=== PATIENT | male | born 1960 | race Two or more races ===

== ENCOUNTER 2019-06-03 12:52 | Inpatient (IN) | payer MEDICAID ==
[~2019-06-03] VITALS: Ht 188 cm; Wt 181.4 kg
[2019-06-03 13:55] LABS: BASOPHILS % (AUTO) 0.7 % (0.0-2.0); EOSINOPHILS % (AUTO) 3.8 % (0.0-3.0); HEMATOCRIT 42.9 % (42.0-52.0); HEMOGLOBIN 13.6 G/DL (14.2-18.0); LYMPHOCYTES % (AUTO) 28.2 % (20.0-45.0); MEAN CORPUSCULAR VOLUME 94 FL (80-99); MONOCYTES % (AUTO) 8.9 % (1.0-10.0); NEUTROPHILS % (AUTO) 58.4 % (45.0-75.0); PLATELET COUNT 249 K/UL (150-450); RED BLOOD COUNT 4.57 M/UL (4.70-6.10); RED CELL DISTRIBUTION WIDTH 12.6 % (11.6-14.8); WHITE BLOOD COUNT 8.9 K/UL (4.8-10.8)
[2019-06-03 13:56] LABS: APPEARANCE,URINE CLEAR; BILIRUBIN, URINE 1+ (NEGATIVE); GLUCOSE, URINE (UA) NEGATIVE (NEGATIVE); KETONES,URINE 1+ (NEGATIVE); LEUKOCYTE ESTERASE ,URINE 3+ (NEGATIVE); NITRITE,URINE POSITIVE (NEGATIVE); PH,URINE 6 (4.5-8.0); PROTEIN,URINE 2+ (NEGATIVE); UROBILINOGEN,URINE 12 MG/DL (0.0-1.0)
[2019-06-03 14:06] LABS: COLOR,URINE YELLOW
[2019-06-03 14:10] LABS: ANION GAP 8 mmol/L (5-15); BLOOD UREA NITROGEN 12 mg/dL (7-18); CARBON DIOXIDE 28 MMOL/L (21-32); CHLORIDE 104 MMOL/L (98-107); POTASSIUM 3.2 MMOL/L (3.5-5.1); SODIUM 140 MMOL/L (136-145)
[2019-06-03 14:15] VITALS: BP 155/85
--- NOTE | 2019-06-03 14:15 | Diagnostic Imaging Report ---
Indication: Dyspnea Comparison: None A single view chest radiograph was obtained. Findings: Cardiomediastinal appearance is within normal limits for age and accounting for low lung volumes. The lungs are grossly clear. Pulmonary vascularity is likely appropriate. The diaphragmatic contour is smooth and costophrenic angles are sharp. No pleural effusions are identified. The bones are unremarkable. Impression: No acute findings. Limited due to low lung volumes
--- NOTE | 2019-06-03 14:16 | NUR ---
ED Nurse Note: laurent vargas 826 pt homeless according to ems pt c/o sob and generalized body pain. pt no meds and no allergies. blood and urine sent pt placed in hospital bed pt unkept and dirty and covered in fecal matter.
--- NOTE | 2019-06-03 14:21 | NUR ---
ED Nurse Note: mrsa/vre/cre ordered and sent.
[2019-06-03 14:24] LABS: ALANINE AMINOTRANSFERASE 25 U/L (12-78); ALBUMIN 2.7 G/DL (3.4-5.0); ALBUMIN/GLOBULIN RATIO 0.6 (1.0-2.7); ALKALINE PHOSPHATASE 90 U/L (46-116); ASPARTATE AMINO TRANSFERASE 45 U/L (15-37); BILIRUBIN,TOTAL 0.7 MG/DL (0.2-1.0); CKMB 2.4 NG/ML (0.0-3.6); CREATINE KINASE 989 U/L (26-308)
--- NOTE | 2019-06-03 14:27 | Emergency Room Report ---
History of Present Illness General Chief Complaint: General Complaint Source: Patient, Medical Record, EMS Present Illness HPI Patient was brought in from the street with complaints of shortness of breath Patient is brought in by paramedics patient himself has limited history as he is difficult to arouse and obtain full history With repeat manipulation he does awaken denies any chest pain denies any vomiting or diarrhea Denies any recent travel patient feels more short of breath with any exertion or ambulation Allergies: Coded Allergies: Pork (Unverified Allergy, Unknown, 06/03/19) TETANUS VACCINES AND TOXOID (Unverified Allergy, Unknown, 06/03/19) Patient History Past Medical History: see triage record Pertinent Family History: none Reviewed Nursing Documentation: PMH: Agreed; PSxH: Agreed Nursing Documentation-PMH Past Medical History: No History, Except For Hx Hypertension: Yes Hx Asthma: Yes Hx Diabetes: Yes Review of Systems All Other Systems: negative except mentioned in HPI Physical Exam Vital Signs Date Time Temp Pulse Resp B/P (MAP) Pulse Ox O2 Delivery O2 Flow Rate FiO2 06/03/19 12:47 99.0 95 18 153/85 (107) 94 Room Air Sp02 EP Interpretation: reviewed, normal General Appearance: other - Patient is morbidly obese and appears mildly short of breath Head: normocephalic, atraumatic Eyes: bilateral eye PERRL, bilateral eye EOMI ENT: hearing grossly normal, normal pharynx, TMs + canals normal, uvula midline Neck: full range of motion, supple, no meningismus, no bony tend Respiratory: no respiratory distress, no retraction, no accessory muscle use, crackles - Bilaterally Cardiovascular #1: normal peripheral pulses, regular rate, rhythm, no edema, no gallop, no JVD, no murmur Gastrointestinal: normal bowel sounds, non tender, soft, no mass, no organomegaly, non-distended, no guarding, no hernia, no pulsatile mass, no rebound Genitourinary: no CVA tenderness Musculoskeletal: normal inspection Neurologic: responsive - With further manipulation and verbal discussion patient becomes more oriented, sensory intact Psychiatric: mood/affect normal Skin: no rash, other - Edema both lower extremities Lymphatic: normal inspection, no adenopathy Medical Decision Making Diagnostic Impression: Primary Impression: Dyspnea ER Course Patient is a fairly complex patient with multiple differential to consideration including but not limited to cardiac cardiopulmonary and vascular emergencies Patient's ABG is reassuring Patient however still remains somnolent difficult to arouse at times Drug screen also shows positive cocaine Given the patient's comorbidities and presentation will require further inpatient care Labs Test 06/03/19 13:30 06/03/19 13:40 White Blood Count 8.9 K/UL (4.8-10.8) Red Blood Count 4.57 M/UL (4.70-6.10) Hemoglobin 13.6 G/DL (14.2-18.0) Hematocrit 42.9 % (42.0-52.0) Mean Corpuscular Volume 94 FL (80-99) Mean Corpuscular Hemoglobin 29.6 PG (27.0-31.0) Mean Corpuscular Hemoglobin Concent 31.6 G/DL (32.0-36.0) Red Cell Distribution Width 12.6 % (11.6-14.8) Platelet Count 249 K/UL (150-450) Mean Platelet Volume 6.4 FL (6.5-10.1) Neutrophils (%) (Auto) 58.4 % (45.0-75.0) Lymphocytes (%) (Auto) 28.2 % (20.0-45.0) Monocytes (%) (Auto) 8.9 % (1.0-10.0) Eosinophils (%) (Auto) 3.8 % (0.0-3.0) Basophils (%) (Auto) 0.7 % (0.0-2.0) Sodium Level 140 MMOL/L (136-145) Potassium Level 3.2 MMOL/L (3.5-5.1) Chloride Level 104 MMOL/L (98-107) Carbon Dioxide Level 28 MMOL/L (21-32) Anion Gap 8 mmol/L (5-15) Blood Urea Nitrogen 12 mg/dL (7-18) Creatinine 1.0 MG/DL (0.55-1.30) Estimat Glomerular Filtration Rate > 60 mL/min (>60) Glucose Level 123 MG/DL (74-106) Lactic Acid Level 1.30 mmol/L (0.4-2.0) Calcium Level 9.0 MG/DL (8.5-10.1) Total Bilirubin 0.7 MG/DL (0.2-1.0) Aspartate Amino Transf (AST/SGOT) 45 U/L (15-37) Alanine Aminotransferase (ALT/SGPT) 25 U/L (12-78) Alkaline Phosphatase 90 U/L (46-116) Total Creatine Kinase 989 U/L (26-308) Creatine Kinase MB 2.4 NG/ML (0.0-3.6) Creatine Kinase MB Relative Index 0.2 Troponin I 0.020 ng/mL (0.000-0.056) Pro-B-Type Natriuretic Peptide 54 pg/mL (0-125) Total Protein 7.4 G/DL (6.4-8.2) Albumin 2.7 G/DL (3.4-5.0) Globulin 4.7 g/dL Albumin/Globulin Ratio 0.6 (1.0-2.7) Lipase 96 U/L (73-393) Urine Color Yellow Urine Appearance Clear Urine pH 6 (4.5-8.0) Urine Specific [place] 1.015 (1.005-1.035) Urine Protein 2+ (NEGATIVE) Urine Glucose (UA) Negative (NEGATIVE) Urine Ketones 1+ (NEGATIVE) Urine Blood 1+ (NEGATIVE) Urine Nitrite Positive (NEGATIVE) Urine Bilirubin 1+ (NEGATIVE) Urine Ictotest Negative (NEGATIVE) Urine Urobilinogen 12 MG/DL (0.0-1.0) Urine Leukocyte Esterase 3+ (NEGATIVE) Urine RBC 2-4 /HPF (0 - 0) Urine WBC 30-40 /HPF (0 - 0) Urine Squamous Epithelial Cells Occasional /LPF Urine Bacteria Moderate /HPF (NONE) Urine Opiates Screen Negative (NEGATIVE) Urine Barbiturates Screen Negative (NEGATIVE) Phencyclidine (PCP) Screen Negative (NEGATIVE) Urine Amphetamines Screen Negative (NEGATIVE) Urine Benzodiazepines Screen Negative (NEGATIVE) Urine Cocaine Screen Positive (NEGATIVE) Urine Marijuana (THC) Screen Negative (NEGATIVE) Rhythm Strip Diag. Results EP Interpretation: yes Rate: 88 Rhythm: NSR, no PVC's, no ectopy Chest X-Ray Diagnostic Results Chest X-Ray Diagnostic Results : Chest X-Ray Ordered: Yes # of Views/Limited/Complete: 1 View Indication: Chest Pain EP Interpretation: Yes Interpretation: no consolidation, no effusion, no pneumothorax Impression: No acute disease Electronically Signed by: Jeff Espinoza DO Last Vital Signs Date Time Temp Pulse Resp B/P (MAP) Pulse Ox O2 Delivery O2 Flow Rate FiO2 7/17/19 14:15 99.0 101 18 155/85 94 Room Air Status: improved Disposition: ADMITTED INPATIENT Condition: Serious Referrals: [facility],REFERRING (PCP) Jeff Espinoza DO Jun 03, 2019 14:27
[2019-06-03] MEDS ORDERED: cefTRIAXone 1 GM in NS 55 ML IVPB ONE (14:30)
--- NOTE | 2019-06-03 14:32 | NUR ---
ED Nurse Note: belongings list done
[2019-06-03] MEDS ORDERED: Albuterol/Ipratropium 3ml neb HHN PRN (15:15)
[2019-06-03] MEDS ORDERED: Nitroglycerin Subl 0.4mg tab SL PRN (15:15)
[2019-06-03] MEDS ORDERED: LORazepam 1mg tab ORAL PRN (15:15)
--- NOTE | 2019-06-03 16:06 | Diagnostic Imaging Report ---
Indication: Dyspnea Comparison: Earlier AP chest x-ray from 13:48 A single lateral view chest radiograph was attempted per ordering physician request. Findings: Due to positioning issues and patient's size, the lateral view obtained is nondiagnostic. IMPRESSION: Lateral chest x-ray nondiagnostic
[2019-06-03 16:15] VITALS: BP 158/88
[2019-06-03 18:28] VITALS: BP 152/56
[2019-06-03] MEDS ORDERED: NKM (18:42)
--- NOTE | 2019-06-03 18:51 | History and Physical ---
History of Present Illness General Date patient seen: Jun 03, 2019 Time patient seen: 16:00 Reason for Hospitalization: General Complaint Present Illness HPI 59 y/o AA obese, homeless male who was BIBA due to generalized body aches. He was noted to be unkept and covered in fecal matter in the ED. Upon evaluation, CXR was not diagnostic due to body habitus and his UA was noted to be positive for UTI. Ceftriaxone was started and UTOX was positive. Due to homelessness and danger to self without proper discharge plan, ED called for admission. During the interview the patient is tangential and a poor historian. He reports living in the street for years and denies pain at this time. No chest pain, sob , nausea or emesis. Allergies: Coded Allergies: No Known Allergies (Unverified , 06/03/19) Medication History Scheduled No Known Medications* (NKM - No Known Medications*), 0 ., (Reported) Patient History History Provided By: Patient Healthcare decision maker Resuscitation status Advanced Directive on File Social History Social History: (1) Homeless single person Review of Systems All Other Systems: negative except mentioned in HPI Physical Exam General Appearance: moderate distress, other - unkept and dirty clothes. PER ED , covered in feces. Lines, tubes and drains: peripheral HEENT: normocephalic, atraumatic Neck: non-tender Respiratory/Chest: chest wall non-tender, normal breath sounds Cardiovascular/Chest: normal peripheral pulses, normal rate Abdomen: non tender Extremities: non-tender, no cyanosis, trace edema Skin Exam: normal pigmentation Neurologic: manager product management II-XII grossly normal Last 24 Hour Vital Signs Date Time Temp Pulse Resp B/P (MAP) Pulse Ox O2 Delivery O2 Flow Rate FiO2 06/03/19 18:28 96 20 152/56 99 Room Air 06/03/19 16:15 99 18 158/88 96 Room Air 06/03/19 14:15 99.0 101 18 155/85 94 Room Air 06/03/19 13:55 95 18 Room Air 06/03/19 12:47 99.0 95 18 153/85 (107) 94 Room Air Laboratory Tests Test 06/03/19 13:30 06/03/19 13:40 06/03/19 14:15 White Blood Count 8.9 K/UL (4.8-10.8) Red Blood Count 4.57 M/UL (4.70-6.10) L Hemoglobin 13.6 G/DL (14.2-18.0) L Hematocrit 42.9 % (42.0-52.0) Mean Corpuscular Volume 94 FL (80-99) Mean Corpuscular Hemoglobin 29.6 PG (27.0-31.0) Mean Corpuscular Hemoglobin Concent 31.6 G/DL (32.0-36.0) L Red Cell Distribution Width 12.6 % (11.6-14.8) Platelet Count 249 K/UL (150-450) Mean Platelet Volume 6.4 FL (6.5-10.1) L Neutrophils (%) (Auto) 58.4 % (45.0-75.0) Lymphocytes (%) (Auto) 28.2 % (20.0-45.0) Monocytes (%) (Auto) 8.9 % (1.0-10.0) Eosinophils (%) (Auto) 3.8 % (0.0-3.0) H Basophils (%) (Auto) 0.7 % (0.0-2.0) Sodium Level 140 MMOL/L (136-145) Potassium Level 3.2 MMOL/L (3.5-5.1) L Chloride Level 104 MMOL/L (98-107) Carbon Dioxide Level 28 MMOL/L (21-32) Anion Gap 8 mmol/L (5-15) Blood Urea Nitrogen 12 mg/dL (7-18) Creatinine 1.0 MG/DL (0.55-1.30) Estimat Glomerular Filtration Rate > 60 mL/min (>60) Glucose Level 123 MG/DL (74-106) H Lactic Acid Level 1.30 mmol/L (0.4-2.0) Calcium Level 9.0 MG/DL (8.5-10.1) Total Bilirubin 0.7 MG/DL (0.2-1.0) Aspartate Amino Transf (AST/SGOT) 45 U/L (15-37) H Alanine Aminotransferase (ALT/SGPT) 25 U/L (12-78) Alkaline Phosphatase 90 U/L (46-116) Total Creatine Kinase 989 U/L (26-308) H Creatine Kinase MB 2.4 NG/ML (0.0-3.6) Creatine Kinase MB Relative Index 0.2 Troponin I 0.020 ng/mL (0.000-0.056) Pro-B-Type Natriuretic Peptide 54 pg/mL (0-125) Total Protein 7.4 G/DL (6.4-8.2) Albumin 2.7 G/DL (3.4-5.0) L Globulin 4.7 g/dL Albumin/Globulin Ratio 0.6 (1.0-2.7) L Lipase 96 U/L (73-393) Urine Color Yellow Urine Appearance Clear Urine pH 6 (4.5-8.0) Urine Specific [place] 1.015 (1.005-1.035) Urine Protein 2+ (NEGATIVE) H Urine Glucose (UA) Negative (NEGATIVE) Urine Ketones 1+ (NEGATIVE) H Urine Blood 1+ (NEGATIVE) H Urine Nitrite Positive (NEGATIVE) H Urine Bilirubin 1+ (NEGATIVE) H Urine Ictotest Negative (NEGATIVE) Urine Urobilinogen 12 MG/DL (0.0-1.0) H Urine Leukocyte Esterase 3+ (NEGATIVE) H Urine RBC 2-4 /HPF (0 - 0) H Urine WBC 30-40 /HPF (0 - 0) H Urine Squamous Epithelial Cells Occasional /LPF Urine Bacteria Moderate /HPF (NONE) H Urine Opiates Screen Negative (NEGATIVE) Urine Barbiturates Screen Negative (NEGATIVE) Phencyclidine (PCP) Screen Negative (NEGATIVE) Urine Amphetamines Screen Negative (NEGATIVE) Urine Benzodiazepines Screen Negative (NEGATIVE) Urine Cocaine Screen Positive (NEGATIVE) H Urine Marijuana (THC) Screen Negative (NEGATIVE) Arterial Blood pH 7.442 (7.350-7.450) Arterial Blood Partial Pressure CO2 39.3 mmHg (35.0-45.0) Arterial Blood Partial Pressure O2 88.1 mmHg (75.0-100.0) Arterial Blood HCO3 26.2 mmol/L (22.0-26.0) H Arterial Blood Oxygen Saturation 96.7 % (95-100) Arterial Blood Base Excess 2.1 (-2-2) H Geoff Test Positive Height (Feet): 5 Height (Inches): 11.00 Weight (Pounds): 250 Medications Current Medications Medications (Trade) Dose Ordered Sig/Feli Route PRN Reason Start Time Stop Time Status Last Admin Dose Admin Acetaminophen (Tylenol) 650 mg Q4H PRN ORAL Mild Pain (Pain Scale 1-3) 06/03/19 15:20 07/03/19 15:19 Albuterol/ Ipratropium (Albuterol/ Ipratropium) 3 ml Q4H PRN HHN shortness of breath 06/03/19 15:15 06/08/19 15:14 Bisacodyl (Dulcolax) 10 mg DAILYPRN PRN RECTAL Constipation 06/03/19 15:15 07/03/19 15:14 Ceftriaxone Sodium 1 gm/ Sodium Chloride 55 ml @ 110 mls/hr DAILY IVPB 06/04/19 09:00 06/11/19 08:59 UNV Dextrose (Dextrose 50%) 25 ml Q30M PRN IV Hypoglycemia 06/03/19 15:15 07/03/19 15:14 Dextrose (Dextrose 50%) 50 ml Q30M PRN IV Hypoglycemia 06/03/19 15:15 07/03/19 15:14 Enoxaparin Sodium (Lovenox) 40 mg Q24H SUBQ 06/03/19 16:15 07/03/19 16:14 UNV Famotidine (Pepcid) 40 mg DAILY ORAL 06/04/19 09:00 07/04/19 08:59 Lorazepam (Ativan) 1 mg Q4H PRN ORAL For Anxiety 06/03/19 15:15 06/10/19 15:14 Nitroglycerin (Ntg) 0.4 mg Q5M PRN SL Prn Chest Pain 06/03/19 15:15 07/03/19 15:14 Ondansetron HCl (Zofran) 4 mg Q6H PRN IVP Nausea & Vomiting 06/03/19 15:15 07/03/19 15:14 Assessment/Plan Status: not improved Status Narrative 59 y/o AA homeless male admitted with generalized body pain. # UTI - Lactate was negative - CTX started in ED - Follow up cx - Encourage hydration # Hypokalemia - 3.2 level will be repleted # Morbid obesity - Education and dietary follow up # Homelessness - consult for placement and resources # Generalized body pain - Add CK level to rule out rhabdomyolysis - PT evaluation in AM # Full code Yuri Alcazar MD Jun 03, 2019 18:51
--- NOTE | 2019-06-03 19:14 | NUR ---
NURSE NOTES: Report received from Angel in ER. Pt is not on the floor yet. Report relayed to Richard. Awaiting arrival of patient.
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
[2019-06-03 20:00] VITALS: BP 171/80
--- NOTE | 2019-06-03 20:50 | NUR ---
NURSE NOTES: Notifed Dr. Mohan of elevated BP and received orders to start lisinopril 10mg daily.
[2019-06-03 21:50] VITALS: BP 142/90
[2019-06-03] MEDS: Lisinopril 10mg tab ORAL SCH (21:50)
--- NOTE | 2019-06-03 21:50 | NUR ---
NURSE NOTES: Patient c/o generalized pain d/t fibromyalgia, 08/27, administered norco 10/325 1 tab po for severe pain.
[2019-06-03] MEDS: HYDROcodone/Acetamin 10/325 tab ORAL PRN (21:51)
[2019-06-03] MEDS: Enoxaparin 40mg Inj SUBQ SCH (22:00)
[2019-06-03] MEDS ORDERED: LISINOPRIL5 MG ORAL (23:28)
[2019-06-03] MEDS ORDERED: HYDROCHLOROTH12.5 M2 ORAL (23:30)
[2019-06-03] MEDS ORDERED: DESYREL100 MG PO (23:37)
[2019-06-03] MEDS ORDERED: SEROQUEL300 MG ORAL (23:37)
[2019-06-03] MEDS ORDERED: BENADRYL25 M3 PO (23:37)
[2019-06-03] MEDS ORDERED: NORCO 5-325 TA1 EACH ORAL (23:40)
[2019-06-03] MEDS ORDERED: KADIAN20 M1 PO (23:40)
[2019-06-04] VITALS: BP 107/80
[2019-06-04 04:00] VITALS: BP 116/87
[2019-06-04 07:21] LABS: BASOPHILS % (AUTO) 0.7 % (0.0-2.0); EOSINOPHILS % (AUTO) 5.2 % (0.0-3.0); HEMATOCRIT 40.2 % (42.0-52.0); HEMOGLOBIN 12.9 G/DL (14.2-18.0); LYMPHOCYTES % (AUTO) 34.7 % (20.0-45.0); MEAN CORPUSCULAR VOLUME 95 FL (80-99); MONOCYTES % (AUTO) 6.5 % (1.0-10.0); NEUTROPHILS % (AUTO) 52.9 % (45.0-75.0); PLATELET COUNT 240 K/UL (150-450); RED BLOOD COUNT 4.23 M/UL (4.70-6.10); RED CELL DISTRIBUTION WIDTH 12.8 % (11.6-14.8)
--- NOTE | 2019-06-04 07:22 | NUR ---
HAND-OFF: Report given to Ese NG. Plan of care endorsed.
[2019-06-04 07:48] LABS: ANION GAP 10 mmol/L (5-15); BLOOD UREA NITROGEN 14 mg/dL (7-18); CALCIUM 8.7 MG/DL (8.5-10.1); CARBON DIOXIDE 28 MMOL/L (21-32); CHLORIDE 104 MMOL/L (98-107); POTASSIUM 3.4 MMOL/L (3.5-5.1); SODIUM 142 MMOL/L (136-145)
[2019-06-04 07:55] LABS: CHOLESTEROL 164 MG/DL (< 200); CREATINE KINASE 535 U/L (26-308); HDL CHOLESTEROL 33 MG/DL (40-60); TRIGLYCERIDES 93 MG/DL (30-150)
--- NOTE | 2019-06-04 08:11 | NUR ---
Received patient awake and oriented to time, place and person. No s/s of respiratory distress. no c/o pain at this time. Bed in lowest position, locked,rails up x3, bed alarm on, call light and frequent used objects are within reach. will continue top monitor.
[2019-06-04 08:32] VITALS: BP 99/51
[2019-06-04] MEDS: cefTRIAXone 1 GM in NS 55 ML IVPB SCH (08:37)
[2019-06-04] MEDS: Lisinopril 10mg tab ORAL SCH (08:39)
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
[2019-06-04] MEDS: HYDROcodone/Acetamin 10/325 tab ORAL PRN ×2 (09:44→22:44)
--- NOTE | 2019-06-04 09:54 | NUR ---
CASE MANAGEMENT:REVIEW 59 YR OLD MALE BIBA FROM STREET CC: GENERALIZED BODY PAIN AND SOB SI: DYSPNEA 99.0 101 18 153/85 94% ON RA K-3.2 GLUCOSE+123 TCK+989 IS: IV ROCEPHIN BLOOD CX CHEST XRAY : TO TELEMETRY IS: IVF@100/HR
[2019-06-04 11:32] VITALS: BP 133/72
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
[2019-06-04 16:00] VITALS: BP 99/51
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
[2019-06-04] MEDS ORDERED: HYDROcodone/Acetamin 10/325 tab ORAL PRN (18:30)
--- NOTE | 2019-06-04 19:22 | NUR ---
HAND-OFF: Report given to SOPHIA NG.
--- NOTE | 2019-06-04 19:30 | NUR ---
NURSE NOTES: Received report from BERENICE Mulligan. Patient in bed asleep showing no signs of acute distress. Respiration even and non labored on room air. No sob noted. IV at Right AC patent and intact on NS@100cc/hr. Call light within reach. Bed in lowest position, wheels locked and alarm on. All needs attended and met. Will continue plan of care.
[2019-06-04 20:00] VITALS: BP 158/81
[2019-06-04] MEDS: Enoxaparin 40mg Inj SUBQ SCH (22:07)
[2019-06-05] VITALS (8 sets, daily range): BP systolic 117–170; BP diastolic 62–90
[2019-06-05 06:39] LABS: BASOPHILS % (AUTO) 0.4 % (0.0-2.0); EOSINOPHILS % (AUTO) 3.9 % (0.0-3.0); HEMOGLOBIN 12.9 G/DL (14.2-18.0); LYMPHOCYTES % (AUTO) 36.2 % (20.0-45.0); MEAN CORPUSCULAR VOLUME 96 FL (80-99); MONOCYTES % (AUTO) 7.8 % (1.0-10.0); NEUTROPHILS % (AUTO) 51.7 % (45.0-75.0); PLATELET COUNT 239 K/UL (150-450); RED BLOOD COUNT 4.28 M/UL (4.70-6.10); WHITE BLOOD COUNT 7.4 K/UL (4.8-10.8)
[2019-06-05 06:57] LABS: ANION GAP 7 mmol/L (5-15); BLOOD UREA NITROGEN 14 mg/dL (7-18); CALCIUM 8.9 MG/DL (8.5-10.1); CARBON DIOXIDE 28 MMOL/L (21-32); CHLORIDE 106 MMOL/L (98-107); POTASSIUM 3.5 MMOL/L (3.5-5.1); SODIUM 141 MMOL/L (136-145)
--- NOTE | 2019-06-05 07:17 | NUR ---
HAND-OFF: Report given to BERENICE Mulligan.
[2019-06-05 07:34] LABS: CREATINE KINASE 303 U/L (26-308)
--- NOTE | 2019-06-05 07:43 | NUR ---
CASE MANAGEMENT:REVIEW 06/05/19 SI: RHABDOMYOLYSIS. UTI 97.8 77 18 139/86 96% ON RA H/H-12.9/41.0 IS: IV ROCEPHIN Q24 IVF@100/HR PEPCID PO QD LISINOPRIL PO QD LOVENOX SQ Q24 : TELEMETRY STATUS DCP: HOMELESS...HOMELESS COORDINATOR IS INVOLVED
[2019-06-05] MEDS: Lisinopril 10mg tab ORAL SCH (09:11)
[2019-06-05] MEDS: HYDROcodone/Acetamin 10/325 tab ORAL PRN (09:20)
[2019-06-05] MEDS: cefTRIAXone 1 GM in NS 55 ML IVPB SCH (09:20)
--- NOTE | 2019-06-05 10:57 | NUR ---
RD ASSESSMENT & RECOMMENDATIONS SEE CARE ACTIVITY FOR COMPLETE ASSESSMENT DAILY ESTIMATED NEEDS: Needs based on Morbid obesity, wounds 20-25 110kg adj kcals/kg 6617-3395 total kcals 1.25-1.5 adj g protein/kg 138-165 g total protein 20-25ml/kcal mL/kg 2950-7399 total fluid mLs NUTRITION DIAGNOSIS: 1) Increased pro needs r/t wound healing as evidenced by pt w/ BL buttock pressure ulcers w/ pending eval. 2) Altered nutrition related lab values r/t clinical status, hyperglycemia as evidenced by elev LDL 114, A1C 6.8 3) Obesity r/t etiology unknown, as evidenced by pt w/ BMI >50, @208% of [place] Body Weight. (CURRENT DIET: Low Fat) PO DIET RECOMMENDATIONS-->> LOW FAT /CCHO MED + DOUBLE PROTEIN PORTIONS ADDITIONAL RECOMMENDATIONS: 1) As able, maintain calibrated bed scale wts 2) A1C 6.8-> rec carb control diet + hypoglycemics 3) F/up with wound eval-> add GEOFF BID
--- NOTE | 2019-06-05 11:17 | NUR ---
*-* INSURANCE *-* ALL CLINICALS AND REVIEWS HAVE BEEN FAXED TO: [facility] F:[phone]
--- NOTE | 2019-06-05 11:41 | NUR ---
PT NOTE Attempted to see patient for PT treatment. Patient declining to participate with PT, states he doesn't feel well, c/o pain rated at 10/10. Explained to patient benefits of participating with PT however patient continued to decline. Ese NG notified, will re-attempt later as schedule permits.
--- NOTE | 2019-06-05 13:00 | NUR ---
Received patient from [facility] charge nurse, patient arrived on the unit, on 2 L via N/A oxygen.awake and oriented x 4 Farsi Speaking. bed in low position, locked,rails up X3, bed alarm on, call light and frequent used objects are within reach.IV 20 gauge on right FA , patent, no s/s of infection or infiltration. will continue to monitor.
--- NOTE | 2019-06-05 14:12 | NUR ---
NURSE NOTES:WOUND CARE NOTES:Pt with Morbid Obesity whom presented on admission with multiple pressure injuries. Full thickness pressure injury L buttocks. Base of wound 80% viable with 20% slough. Macerated borders . Darker skin tone with induration or fluctuance periwound. (L)3.5cm x (W)1cm. Full Thickness pressure injury R buttocks. Base of wound 90% amy ,10% necrotic area noted. Small amt sanguineous exudate noted. Borders macerated. Darker skin tone without erythema ,induration or elevation in skin temp noted. (L)7.5cm x (W)3cm. Pt verbalized burning at sites of each wound.Dry skin with shearing noted to Sacrum. Intertriginous dermatitis noted to scrotum.erythema with patches of scaly skin with scattered satellite lesions noted to scrotum. Pt's hygiene is grossly neglected. Both heels are dry and callused . No erythema noted to heels. Tx.Plan: Apply Moisture Barrier Paste to R and L buttocks and Sacrum Daily. Cover with Optifoam drsg. daily and prn. Encourage and assist as needed with repositioning at least every 2hours or as tolerated. Apply Cavilon Skin Barrier to both heels. Off-load heels with pillow.
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
--- NOTE | 2019-06-05 17:07 | NUR ---
Social Service Note Homeless coordinator has been in contact with patient's mental health provider in coordination of a correction bed if required on discharge. Bed may be available on Saturday. Will follow up.
--- NOTE | 2019-06-05 19:51 | NUR ---
HAND-OFF: Report given to Anish NG.
[2019-06-05] MEDS: Enoxaparin 40mg Inj SUBQ SCH (20:00)
--- NOTE | 2019-06-05 20:07 | NUR ---
NURSE NOTES:LAB REPORTED BLOOD CULTURE + GRAM + COCCID IN CLUSTER ONE BOTTLE A1C RESULTED 6.8 I WAS UNABLE TO NOTIFY DR. BRICE ( RECENTLY DR. WATERS OFFICE NUMBER NOT GOING THROUGH) I CALLED X 4 DR. WATERS OFFICE @ [phone] STILL UNABLE TO REACH HIM. PLEASE FOLLOW UP
[2019-06-05] MEDS: HydrALAZINE 10mg Tab ORAL PRN (21:02)
[2019-06-06] VITALS (7 sets, daily range): BP systolic 126–190; BP diastolic 66–94
[2019-06-06] MEDS: HYDROcodone/Acetamin 10/325 tab ORAL PRN (03:09)
--- NOTE | 2019-06-06 05:00 | NUR ---
NURSE NOTES: Called Dr. Marti at [phone] throughout the night to notify him about Blood cx: Gram + +Coccid in cluster in 1 bottle and A1C:6.8, but the call did not go thru. 0500: Called Dr. Marti at [phone]. Spoke to construction secretary and told him about Blood cx: Gram + +Coccid in cluster in 1 bottle and A1C:6.8. He said that he will relay the message to the on-call doctor. Left him the call back # of this unit [phone]. Awaiting callback. Continue to monitor. Addendum: 06/06/19 at 0743 by Murali Oconnell RN 2230: Dr. Marti called back. Orders given and placed.
--- NOTE | 2019-06-06 05:30 | NUR ---
NURSE NOTES: Lab called said pt is + Mrsa nares. Charge nurse notified. Contact precautions established. Continue to monitor.
--- NOTE | 2019-06-06 07:00 | NUR ---
HAND-OFF: Report given to Barbie NG. Endorsed plan of care.
--- NOTE | 2019-06-06 07:48 | NUR ---
NURSE NOTES: Received report from BERENICE Rubio. The patient is resting on the bed without acute distress or shortness of breath. The patient is asking one more tray of breakfast and ordered to kitchen. The patient's bed in the lowest position, call light in reach, and fall and aspiration precaution reinforced. Dr. Marti called in again regarding positive blood culture and ordered Vanco IV pharmacy to dose. BERENICE Rubio will carry out order. Will continue plan of care.
--- NOTE | 2019-06-06 09:00 | NUR ---
NURSE NOTES: Based on blood and urine culture result, ID physician consult per order and started Vancomycin per order.
[2019-06-06] MEDS: Lisinopril 10mg tab ORAL SCH (09:14)
[2019-06-06] MEDS: HydrALAZINE 10mg Tab ORAL PRN (09:14)
[2019-06-06] MEDS: cefTRIAXone 1 GM in NS 55 ML IVPB SCH (09:14)
[2019-06-06] MEDS ORDERED: Vancomycin 2gm/D5W 550ml IVPB ONE ×2 (09:30)
--- NOTE | 2019-06-06 10:00 | NUR ---
NURSE NOTES: Wound assessment and dressing change completed per order. Will continue to monitor the patient.
--- NOTE | 2019-06-06 12:00 | NUR ---
NURSE NOTES: The patient is stable without acute distress or shortness of breath. Will continue plan of care.
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
--- NOTE | 2019-06-06 13:21 | NUR ---
PT Note Attempted to see patient for treatment but c/o having a lot of pain; refused treatment.
--- NOTE | 2019-06-06 14:45 | Consultation ---
History of Present Illness General Date patient seen: Jun 06, 2019 Reason for Hospitalization: General Complaint Present Illness HPI 59 year old obese male presented to ED with backache and noted to be covered in fecal matter and unkept. On admission noted to have multiple areas of concern in skin integrity. surgery called to evaluate and assist with care. patient seen, chart reviewed, patient examine. states just generalized pain that he wants pain medication for. no n/v/f/c. Allergies: Coded Allergies: Pork (Unverified Allergy, Unknown, 06/03/19) TETANUS VACCINES AND TOXOID (Unverified Allergy, Unknown, 06/03/19) Medication History Scheduled No Known Medications* (NKM - No Known Medications*), 0 ., (Reported) Scheduled PRN Diphenhydramine HCl (Benadryl), 100 MG PO BEDTIME PRN for Insomnia, (Reported) Hydrochlorothiazide* (Hydrochlorothiazide*), Unknown Dose ORAL DAILY PRN for For High Blood Pressure, (Reported) Hydrocodone Bit/Acetaminophen 5-325* ([place] 5-325*), Unknown Dose ORAL Q8HR PRN for For Pain, (Reported) Lisinopril (Lisinopril*), Unknown Dose ORAL DAILY PRN for For High Blood Pressure, (Reported) Morphine Sulfate ([place]), Unknown Dose PO EVERY 12 HOURS PRN for For Pain, ( Reported) Quetiapine Fumarate (Seroquel), 300 MG ORAL BEDTIME PRN for For Anxiety, ( Reported) Trazodone Hcl (Desyrel), 100 MG PO BEDTIME PRN for Insomnia, (Reported) Patient History History Provided By: Patient, Medical Record, PMD Healthcare decision maker Resuscitation status Full Code Advanced Directive on File Past Medical/Surgical History Past Medical/Surgical History: (1) Dyspnea (2) Encounter for generalized patient complaints Review of Systems Review of Symptoms General ROS: no weight loss or fever Psychological ROS: no depression or mood changes, no memory loss Ophthalmic ROS: no visual changes or eye irritation ENT ROS: no nasal congestion, hearing loss, dizziness Allergy and Immunology ROS: no allergic symptoms or urticaria Hematological and Lymphatic ROS: no swollen glands, unusual bleeding or bruising Endocrine ROS: no polyuria, polydipsia, weight changes, temperature intolerance Respiratory ROS: no cough, shortness of breath, or wheezing Cardiovascular ROS: no chest pain or dyspnea on exertion Gastrointestinal ROS: denies abdominal pain,no bright red blood in stool. Musculoskeletal ROS: no myalgias or arthralgias Neurological ROS: no TIA or stroke symptoms Dermatological ROS: no new or changing skin lesions, rashes or pruritis Physical Exam Physical Exam General appearance: alert, cooperative, no distress, appears stated age Head: Normocephalic, without obvious abnormality, atraumatic Eyes: conjunctivae/corneas clear. PERRL, EOM's intact. Fundi benign Throat: Lips, mucosa, and tongue normal. Teeth and gums normal Neck: supple, symmetrical, trachea midline, no adenopathy, thyroid: not enlarged, symmetric, no tenderness/mass/nodules, no carotid bruit and no JVD Lungs: clear to auscultation bilaterally Heart: regular rate and rhythm, S1, S2 normal, no murmur, click, rub or gallop Abdomen: soft, non-tender. Bowel sounds normal. No masses, no organomegaly Extremities: extremities normal, atraumatic, no cyanosis or edema Pulses: 2+ and symmetric Skin: Skin color, texture, turgor normal. No rashes or lesions Neurologic: Grossly normal Last 24 Hour Vital Signs Date Time Temp Pulse Resp B/P (MAP) Pulse Ox O2 Delivery O2 Flow Rate FiO2 06/06/19 12:00 97.6 81 18 126/85 (99) 95 06/06/19 09:14 168/84 06/06/19 09:14 168/84 06/06/19 09:03 98.3 85 18 168/84 (112) 96 06/06/19 08:00 98.3 80 18 190/94 (126) 96 06/06/19 04:20 72 06/06/19 03:39 97.9 06/06/19 01:00 155/85 (108) 06/06/19 00:00 83 06/06/19 00:00 97.9 85 20 160/87 (111) 95 06/05/19 21:02 170/90 06/05/19 21:00 158/86 (110) 06/05/19 21:00 Room Air 06/05/19 20:00 99.0 90 18 170/90 (116) 95 06/05/19 20:00 92 06/05/19 18:00 98.3 83 20 154/78 (103) 97 06/05/19 18:00 87 06/05/19 16:00 98.3 83 20 154/78 (103) 96 Intake and Output 06/05/19 06/06/19 19:00 07:00 Intake Total 360 ml Output Total 900 ml Balance -540 ml Intake Oral 360 ml Output Urine Total 900 ml Height (Feet): 6 Height (Inches): 2.00 Weight (Pounds): 395 Medications Current Medications Medications (Trade) Dose Ordered Sig/Feli Route PRN Reason Start Time Stop Time Status Last Admin Dose Admin Acetaminophen (Tylenol) 650 mg Q4H PRN ORAL Mild Pain (Pain Scale 1-3) 06/03/19 15:20 07/03/19 15:19 Acetaminophen/ Hydrocodone Bitart ([place] 10/325) 1 tab Q4H PRN ORAL Pain Scale (6-10) 06/03/19 21:00 06/10/19 20:59 06/06/19 03:09 Acetaminophen/ Hydrocodone Bitart ([place] 5/325) 1 tab Q4H PRN ORAL Moderate Pain (Pain Scale 4-6) 06/03/19 21:00 06/10/19 20:59 Albuterol/ Ipratropium (Albuterol/ Ipratropium) 3 ml Q4H PRN HHN shortness of breath 06/03/19 15:15 06/08/19 15:14 Bisacodyl (Dulcolax) 10 mg DAILYPRN PRN RECTAL Constipation 06/03/19 15:15 07/03/19 15:14 Ceftriaxone Sodium 1 gm/ Sodium Chloride 55 ml @ 110 mls/hr DAILY IVPB 06/04/19 09:00 06/11/19 08:59 06/06/19 09:14 Dextrose (Dextrose 50%) 25 ml Q30M PRN IV Hypoglycemia 06/03/19 15:15 07/03/19 15:14 Dextrose (Dextrose 50%) 50 ml Q30M PRN IV Hypoglycemia 06/03/19 15:15 07/03/19 15:14 Enoxaparin Sodium (Lovenox) 40 mg Q24H SUBQ 06/03/19 20:00 07/03/19 19:59 06/05/19 20:00 Famotidine (Pepcid) 40 mg DAILY ORAL 06/04/19 09:00 07/04/19 08:59 06/06/19 09:14 Hydralazine HCl (Apresoline) 10 mg Q6H PRN ORAL SBP >160 06/03/19 21:00 07/03/19 20:59 06/06/19 09:14 Hydralazine HCl (Apresoline) 25 mg Q6HR ORAL 06/06/19 18:00 07/06/19 17:59 Lisinopril (Zestril) 20 mg DAILY ORAL 06/07/19 09:00 07/07/19 08:59 Lorazepam (Ativan) 1 mg Q4H PRN ORAL For Anxiety 06/03/19 15:15 06/10/19 15:14 Nitroglycerin (Ntg) 0.4 mg Q5M PRN SL Prn Chest Pain 06/03/19 15:15 07/03/19 15:14 Ondansetron HCl (Zofran) 4 mg Q6H PRN IVP Nausea & Vomiting 06/03/19 15:15 07/03/19 15:14 Vancomycin HCl (Vanco rx to dose) 1 ea DAILY PRN MISC Per rx protocol 06/06/19 07:45 07/06/19 07:44 Vancomycin HCl 1 gm/Dextrose 275 ml @ 183.708 mls/hr Q8HR@0200,1000,1800 IVPB 06/06/19 18:00 06/11/19 17:59 Assessment/Plan Problem List: (1) Incontinence associated dermatitis Assessment & Plan: Pt with Morbid Obesity whom presented on admission with multiple pressure injuries. Full thickness pressure injury L buttocks. Base of wound 80% viable with 20% slough. Macerated borders . Darker skin tone with induration or fluctuance periwound. (L)3.5cm x (W)1cm. Full Thickness pressure injury R buttocks. Base of wound 90% amy ,10% necrotic area noted. Small amt sanguineous exudate noted. Borders macerated. Darker skin tone without erythema ,induration or elevation in skin temp noted. ( L)7.5cm x (W)3cm. Pt verbalized burning at sites of each wound.Dry skin with shearing noted to Sacrum. Intertriginous dermatitis noted to scrotum.erythema with patches of scaly skin with scattered satellite lesions noted to scrotum. Pt's hygiene is grossly neglected. Both heels are dry and callused . No erythema noted to heels. Tx.Plan: Apply Moisture Barrier Paste to R and L buttocks and Sacrum Daily. Cover with Optifoam drsg. daily and prn. \Encourage and assist as needed with repositioning at least every 2hours or as tolerated. Apply Cavilon Skin Barrier to both heels. Off-load heels with pillow ICD Codes: L30.8 - Other specified dermatitis; R32 - Unspecified urinary incontinence SNOMED: 230453547 (2) Decubital ulcer ICD Codes: L89.90 - Pressure ulcer of unspecified site, unspecified stage SNOMED: 485342350 (3) Encounter for generalized patient complaints ICD Codes: Z00.8 - Encounter for other general examination SNOMED: 449427509 (4) Dyspnea ICD Codes: R06.00 - Dyspnea, unspecified SNOMED: 499878588 Allen Bone Jun 06, 2019 14:45
[2019-06-06] MEDS: Vancomycin 1gm/D5W 275ml IVPB SCH ×2 (18:21)
[2019-06-06] MEDS: HydrALAZINE 25mg tab ORAL SCH (18:22)
[2019-06-06] MEDS: HYDROcodone/Acetamin 5/325 tab ORAL PRN (18:23)
--- NOTE | 2019-06-06 19:30 | NUR ---
HAND-OFF: Report given to BERENICE Ramos. The patient is resting on the bed without acute distress or shortness of breath. The patient's bed in the lowest position, call light in reach, and fall and aspiration precaution reinforced. Endorsed plan of care.
--- NOTE | 2019-06-06 19:30 | NUR ---
NURSE NOTES: Received patient from Barbie NG. Patient awake in bed, alert and oriented x4. On room air, no s/s respiratory distress. Bed in low position, locked, bed alarm loan services professional light within reach.
[2019-06-06] MEDS: Enoxaparin 40mg Inj SUBQ SCH (20:16)
[2019-06-07] VITALS: BP 144/68
[2019-06-07] MEDS: HydrALAZINE 25mg tab ORAL SCH ×5 (00:14→23:31)
[2019-06-07] MEDS: HYDROcodone/Acetamin 10/325 tab ORAL PRN ×4 (00:17→23:25)
[2019-06-07] MEDS: Vancomycin 1gm/D5W 275ml IVPB SCH ×6 (01:12→18:12)
[2019-06-07 04:00] VITALS: BP 163/81
--- NOTE | 2019-06-07 07:30 | NUR ---
NURSE NOTES: Nurse report given by BERENICE Ramos. Patient is asleep comfortably in bed, no sign of distress or SOB. Bed at lowest position, break engaged and call light within reach. ekg monitor tech is on. IV site is patent and asymptomatic. Will continue to monitor.
--- NOTE | 2019-06-07 07:36 | NUR ---
HAND-OFF: Report given to Sumaya NG. Plan of care endorsed.
[2019-06-07 08:00] VITALS: BP 137/83
[2019-06-07] MEDS: Lisinopril 10mg tab ORAL SCH (09:03)
[2019-06-07] MEDS: cefTRIAXone 1 GM in NS 55 ML IVPB SCH (09:04)
[2019-06-07 10:10] LABS: BASOPHILS % (AUTO) 0.9 % (0.0-2.0); EOSINOPHILS % (AUTO) 3.4 % (0.0-3.0); HEMATOCRIT 40.6 % (42.0-52.0); LYMPHOCYTES % (AUTO) 36.3 % (20.0-45.0); MEAN CORPUSCULAR VOLUME 93 FL (80-99); MONOCYTES % (AUTO) 8.4 % (1.0-10.0); PLATELET COUNT 230 K/UL (150-450); RED BLOOD COUNT 4.35 M/UL (4.70-6.10); RED CELL DISTRIBUTION WIDTH 12.6 % (11.6-14.8); WHITE BLOOD COUNT 5.6 K/UL (4.8-10.8)
[2019-06-07 10:24] LABS: ANION GAP 6 mmol/L (5-15); BLOOD UREA NITROGEN 7 mg/dL (7-18); CALCIUM 8.9 MG/DL (8.5-10.1); CARBON DIOXIDE 31 MMOL/L (21-32); CHLORIDE 102 MMOL/L (98-107); CREATININE 0.9 MG/DL (0.55-1.30); POTASSIUM 3.6 MMOL/L (3.5-5.1); SODIUM 138 MMOL/L (136-145)
--- NOTE | 2019-06-07 10:57 | NUR ---
P.T Note: P.T attempted however patient declined to participate due c/o fatigue from lack of sleep. Pt requested to be seen tomorrow. P.T will follow up tomorrow. RN notified.
[2019-06-07 12:00] VITALS: BP 142/75
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
[2019-06-07 16:00] VITALS: BP 170/79
[2019-06-07] MEDS: HYDROcodone/Acetamin 5/325 tab ORAL PRN (18:14)
--- NOTE | 2019-06-07 19:15 | NUR ---
HAND-OFF: Report given to BERENICE Rubio. Patient is comfortable, no s/s of acute distress or SOB. Plan of care endorsed.
--- NOTE | 2019-06-07 19:16 | NUR ---
NURSE NOTES: Got report from Sumaya NG. Pt in stable condition. Denies any pain. No s/s of distress or discomfort noted. Pt resting in bed comfortably. Bed in low and locked position, call light within reach, bedside table within reach. Continue to monitor.
--- NOTE | 2019-06-07 19:43 | Surgery Progress Note ---
Surgery Progress Note Subjective Additional Comments resting comfortable no complaints has wheelchair at bedside now labs improved and stable. Objective Last 24 Hour Vital Signs Date Time Temp Pulse Resp B/P (MAP) Pulse Ox O2 Delivery O2 Flow Rate FiO2 06/07/19 18:12 170/79 06/07/19 16:00 97.8 84 21 170/79 (109) 95 06/07/19 16:00 88 06/07/19 12:00 90 06/07/19 12:00 97.4 82 20 142/75 (97) 97 06/07/19 11:28 137/83 06/07/19 09:03 137/83 06/07/19 09:00 Room Air 06/07/19 08:00 98.4 77 20 137/83 (101) 94 06/07/19 08:00 91 06/07/19 05:19 163/81 06/07/19 04:00 98.2 77 18 163/81 (108) 95 06/07/19 03:50 88 06/07/19 00:14 144/68 06/07/19 00:00 98.2 77 18 144/68 (93) 95 06/06/19 23:50 80 06/06/19 21:00 Room Air 06/06/19 20:00 98.9 85 20 127/66 (86) 95 I&O Intake and Output 06/06/19 06/07/19 19:00 07:00 Intake Total 960 ml 360 ml Output Total 1200 ml 1100 ml Balance -240 ml -740 ml Intake Oral 960 ml 360 ml Output Urine Total 1200 ml 1100 ml Dressing: saturated Wound: clean Cardiovascular: RSR Respiratory: clear Abdomen: soft, non-tender, present bowel sounds Extremities: no cyanosis Laboratory Tests Test 06/07/19 09:30 White Blood Count 5.6 K/UL (4.8-10.8) Red Blood Count 4.35 M/UL (4.70-6.10) L Hemoglobin 13.0 G/DL (14.2-18.0) L Hematocrit 40.6 % (42.0-52.0) L Mean Corpuscular Volume 93 FL (80-99) Mean Corpuscular Hemoglobin 29.9 PG (27.0-31.0) Mean Corpuscular Hemoglobin Concent 32.0 G/DL (32.0-36.0) Red Cell Distribution Width 12.6 % (11.6-14.8) Platelet Count 230 K/UL (150-450) Mean Platelet Volume 5.9 FL (6.5-10.1) L Neutrophils (%) (Auto) 51.0 % (45.0-75.0) Lymphocytes (%) (Auto) 36.3 % (20.0-45.0) Monocytes (%) (Auto) 8.4 % (1.0-10.0) Eosinophils (%) (Auto) 3.4 % (0.0-3.0) H Basophils (%) (Auto) 0.9 % (0.0-2.0) Sodium Level 138 MMOL/L (136-145) Potassium Level 3.6 MMOL/L (3.5-5.1) Chloride Level 102 MMOL/L (98-107) Carbon Dioxide Level 31 MMOL/L (21-32) Anion Gap 6 mmol/L (5-15) Blood Urea Nitrogen 7 mg/dL (7-18) Creatinine 0.9 MG/DL (0.55-1.30) Estimat Glomerular Filtration Rate > 60 mL/min (>60) Glucose Level 134 MG/DL (74-106) H Calcium Level 8.9 MG/DL (8.5-10.1) Vancomycin Level Trough 9.9 ug/mL (5.0-12.0) Plan Problems: (1) Incontinence associated dermatitis Assessment & Plan: Pt with Morbid Obesity whom presented on admission with multiple pressure injuries. Full thickness pressure injury L buttocks. Base of wound 80% viable with 20% slough. Macerated borders . Darker skin tone with induration or fluctuance periwound. (L)3.5cm x (W)1cm. Full Thickness pressure injury R buttocks. Base of wound 90% amy ,10% necrotic area noted. Small amt sanguineous exudate noted. Borders macerated. Darker skin tone without erythema ,induration or elevation in skin temp noted. ( L)7.5cm x (W)3cm. Pt verbalized burning at sites of each wound.Dry skin with shearing noted to Sacrum. Intertriginous dermatitis noted to scrotum.erythema with patches of scaly skin with scattered satellite lesions noted to scrotum. Pt's hygiene is grossly neglected. Both heels are dry and callused . No erythema noted to heels. Tx.Plan: Apply Moisture Barrier Paste to R and L buttocks and Sacrum Daily. Cover with Optifoam drsg. daily and prn. \Encourage and assist as needed with repositioning at least every 2hours or as tolerated. Apply Cavilon Skin Barrier to both heels. Off-load heels with pillow (2) Decubital ulcer (3) Encounter for generalized patient complaints (4) Dyspnea Allen Bone Jun 07, 2019 19:43
[2019-06-07 20:00] VITALS: BP 158/82
[2019-06-07] MEDS: Enoxaparin 40mg Inj SUBQ SCH (20:00)
[2019-06-08] VITALS (7 sets, daily range): BP systolic 141–173; BP diastolic 66–93
[2019-06-08] MEDS: HydrALAZINE 10mg Tab ORAL PRN ×2 (00:38→20:04)
[2019-06-08] MEDS: Vancomycin 1gm/D5W 275ml IVPB SCH ×8 (01:46→18:35)
[2019-06-08 04:51] LABS: EOSINOPHILS % (AUTO) 4.9 % (0.0-3.0); HEMATOCRIT 40.2 % (42.0-52.0); LYMPHOCYTES % (AUTO) 41.4 % (20.0-45.0); MEAN CORPUSCULAR VOLUME 94 FL (80-99); MONOCYTES % (AUTO) 7.6 % (1.0-10.0); NEUTROPHILS % (AUTO) 45.2 % (45.0-75.0); PLATELET COUNT 255 K/UL (150-450); RED BLOOD COUNT 4.27 M/UL (4.70-6.10); RED CELL DISTRIBUTION WIDTH 12.6 % (11.6-14.8); WHITE BLOOD COUNT 6.3 K/UL (4.8-10.8)
[2019-06-08 04:56] LABS: ANION GAP 6 mmol/L (5-15); BLOOD UREA NITROGEN 9 mg/dL (7-18); CALCIUM 9.2 MG/DL (8.5-10.1); CARBON DIOXIDE 30 MMOL/L (21-32); CHLORIDE 101 MMOL/L (98-107); CREATININE 0.9 MG/DL (0.55-1.30); POTASSIUM 3.8 MMOL/L (3.5-5.1); SODIUM 137 MMOL/L (136-145)
[2019-06-08] MEDS: HydrALAZINE 25mg tab ORAL SCH ×2 (05:47→11:23)
[2019-06-08] MEDS: HYDROcodone/Acetamin 10/325 tab ORAL PRN ×3 (05:50→20:04)
--- NOTE | 2019-06-08 07:15 | NUR ---
HAND-OFF: Report given to Sumaya NG. Endorsed plan of care.
--- NOTE | 2019-06-08 07:15 | NUR ---
NURSE NOTES: Nurse report give by BERENICE Rubio. Patient is sleeping comfortably in bed. No s/s of acute distress or SOB. Breakfast at bedside, bed at lowest position, break engaged and call light within reach. Will continue to monitor closely.
--- NOTE | 2019-06-08 08:37 | NUR ---
CASE MANAGEMENT:REVIEW 06/06/19 SI: RHABDOMYOLYSIS. UTI. WOUND 98.3 80 18 190/94 96% ON RA IS: LISINOPRIL PO QD IV VANCOMYCIN Q8HRS IV ROCEPHIN Q24 HYDRALAZINE PO Q6HRS LOVENOX SQ Q24 NORCO PO Q4HRS PRN : TELEMETRY STATUS DCP: HOMELESS 06/07/19 SI: RHABDOMYOLYSIS. UTI 98.4 77 20 137/83 94% ON RA H/H-13.0/40.6 IS: LISINOPRIL PO QD IV VANCOMYCIN Q8HRS IV ROCEPHIN Q24 HYDRALAZINE PO Q6HRS LOVENOX SQ Q24 NORCO PO Q4HRS PRN : TELEMETRY STATUS DCP: HOMELESS 06/08/19 SI: RHABDOMYOLYSIS. UTI 97.8 88 20 159/86 96% ON RA H/H-13.0/40.2 IS: LISINOPRIL PO QD IV VANCOMYCIN Q8HRS IV ROCEPHIN Q24 HYDRALAZINE PO Q6HRS LOVENOX SQ Q24 NORCO PO Q4HRS PRN : TELEMETRY STATUS DCP: HOMELESS PLAN: MAY NEED SNF PLACEMENT UPON DISCHARGE FOR WOUND CARE WOUND CARE~ APPLY MOISTURE BARRIER PASTE TO RT AND LT BUTTOCKS AND SACRUM DAILY. COVER WITH OPTIFOAM DRESSING DAILY AND PRN
[2019-06-08] MEDS: cefTRIAXone 1 GM in NS 55 ML IVPB SCH (09:21)
[2019-06-08] MEDS: Lisinopril 10mg tab ORAL SCH (09:21)
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
[2019-06-08 10:02] LABS: BASOPHILS % (AUTO) 0.6 % (0.0-2.0); EOSINOPHILS % (AUTO) 3.3 % (0.0-3.0); HEMATOCRIT 41.7 % (42.0-52.0); HEMOGLOBIN 13.2 G/DL (14.2-18.0); LYMPHOCYTES % (AUTO) 33.3 % (20.0-45.0); MEAN CORPUSCULAR VOLUME 93 FL (80-99); MONOCYTES % (AUTO) 7.8 % (1.0-10.0); NEUTROPHILS % (AUTO) 54.9 % (45.0-75.0); PLATELET COUNT 247 K/UL (150-450); RED BLOOD COUNT 4.47 M/UL (4.70-6.10); RED CELL DISTRIBUTION WIDTH 12.6 % (11.6-14.8); WHITE BLOOD COUNT 6.1 K/UL (4.8-10.8)
[2019-06-08 10:08] LABS: ANION GAP 3 mmol/L (5-15); BLOOD UREA NITROGEN 9 mg/dL (7-18); CALCIUM 8.9 MG/DL (8.5-10.1); CARBON DIOXIDE 32 MMOL/L (21-32); CHLORIDE 101 MMOL/L (98-107); CREATININE 0.9 MG/DL (0.55-1.30); POTASSIUM 3.7 MMOL/L (3.5-5.1); SODIUM 136 MMOL/L (136-145)
[2019-06-08] MEDS: HYDROcodone/Acetamin 5/325 tab ORAL PRN (11:23)
--- NOTE | 2019-06-08 13:00 | NUR ---
*-* INSURANCE *-* UPDATED CLINICALS AND REVIEWS HAVE BEEN FAXED TO: [facility] F:[phone]
--- NOTE | 2019-06-08 13:17 | Surgery Progress Note ---
Surgery Progress Note Subjective Additional Comments no acute events labs okay states that he needs more pain medication no n/v/f/c tolerating diet wheelchair bound Objective Last 24 Hour Vital Signs Date Time Temp Pulse Resp B/P (MAP) Pulse Ox O2 Delivery O2 Flow Rate FiO2 06/08/19 11:23 159/79 06/08/19 09:21 159/79 06/08/19 09:00 Room Air 06/08/19 08:00 97.6 89 18 159/79 (105) 95 06/08/19 06:22 97.8 06/08/19 05:47 159/86 06/08/19 04:00 76 06/08/19 04:00 97.8 88 20 159/86 (110) 96 06/08/19 02:02 155/81 (105) 06/08/19 00:38 163/86 06/08/19 00:07 80 06/08/19 00:07 97.4 84 20 163/86 (111) 96 06/07/19 23:31 158/82 06/07/19 21:00 Room Air 06/07/19 20:00 84 06/07/19 20:00 98.2 86 19 158/82 (107) 96 06/07/19 18:12 170/79 06/07/19 16:00 97.8 84 21 170/79 (109) 95 06/07/19 16:00 88 I&O Intake and Output 06/07/19 06/08/19 19:00 07:00 Intake Total 422.416 ml Output Total 600 ml 1000 ml Balance -177.584 ml -1000 ml IV Total 422.416 ml Output Urine Total 600 ml 1000 ml Dressing: saturated Wound: other Cardiovascular: RSR Respiratory: clear Abdomen: soft, non-tender, present bowel sounds, other - morbidly obese , non- distended Extremities: edema, no cyanosis Laboratory Tests Test 06/08/19 04:00 06/08/19 09:50 White Blood Count 6.3 K/UL (4.8-10.8) 6.1 K/UL (4.8-10.8) Red Blood Count 4.27 M/UL (4.70-6.10) L 4.47 M/UL (4.70-6.10) L Hemoglobin 13.0 G/DL (14.2-18.0) L 13.2 G/DL (14.2-18.0) L Hematocrit 40.2 % (42.0-52.0) L 41.7 % (42.0-52.0) L Mean Corpuscular Volume 94 FL (80-99) 93 FL (80-99) Mean Corpuscular Hemoglobin 30.4 PG (27.0-31.0) 29.6 PG (27.0-31.0) Mean Corpuscular Hemoglobin Concent 32.3 G/DL (32.0-36.0) 31.6 G/DL (32.0-36.0) L Red Cell Distribution Width 12.6 % (11.6-14.8) 12.6 % (11.6-14.8) Platelet Count 255 K/UL (150-450) 247 K/UL (150-450) Mean Platelet Volume 6.0 FL (6.5-10.1) L 5.5 FL (6.5-10.1) L Neutrophils (%) (Auto) 45.2 % (45.0-75.0) 54.9 % (45.0-75.0) Lymphocytes (%) (Auto) 41.4 % (20.0-45.0) 33.3 % (20.0-45.0) Monocytes (%) (Auto) 7.6 % (1.0-10.0) 7.8 % (1.0-10.0) Eosinophils (%) (Auto) 4.9 % (0.0-3.0) H 3.3 % (0.0-3.0) H Basophils (%) (Auto) 1.0 % (0.0-2.0) 0.6 % (0.0-2.0) Sodium Level 137 MMOL/L (136-145) 136 MMOL/L (136-145) Potassium Level 3.8 MMOL/L (3.5-5.1) 3.7 MMOL/L (3.5-5.1) Chloride Level 101 MMOL/L (98-107) 101 MMOL/L (98-107) Carbon Dioxide Level 30 MMOL/L (21-32) 32 MMOL/L (21-32) Anion Gap 6 mmol/L (5-15) 3 mmol/L (5-15) L Blood Urea Nitrogen 9 mg/dL (7-18) 9 mg/dL (7-18) Creatinine 0.9 MG/DL (0.55-1.30) 0.9 MG/DL (0.55-1.30) Estimat Glomerular Filtration Rate > 60 mL/min (>60) > 60 mL/min (>60) Glucose Level 117 MG/DL (74-106) H 150 MG/DL (74-106) H Calcium Level 9.2 MG/DL (8.5-10.1) 8.9 MG/DL (8.5-10.1) Vancomycin Level Trough 18.9 ug/mL (5.0-12.0) H Plan Problems: (1) Incontinence associated dermatitis Assessment & Plan: Pt with Morbid Obesity whom presented on admission with multiple pressure injuries. Full thickness pressure injury L buttocks. Base of wound 80% viable with 20% slough. Macerated borders . Darker skin tone with induration or fluctuance periwound. (L)3.5cm x (W)1cm. Full Thickness pressure injury R buttocks. Base of wound 90% amy ,10% necrotic area noted. Small amt sanguineous exudate noted. Borders macerated. Darker skin tone without erythema ,induration or elevation in skin temp noted. ( L)7.5cm x (W)3cm. Pt verbalized burning at sites of each wound.Dry skin with shearing noted to Sacrum. Intertriginous dermatitis noted to scrotum.erythema with patches of scaly skin with scattered satellite lesions noted to scrotum. Pt's hygiene is grossly neglected. Both heels are dry and callused . No erythema noted to heels. Tx.Plan: Apply Moisture Barrier Paste to R and L buttocks and Sacrum Daily. Cover with Optifoam drsg. daily and prn. Encourage and assist as needed with repositioning at least every 2hours or as tolerated. Apply Cavilon Skin Barrier to both heels. Off-load heels with pillow (2) Decubital ulcer (3) Encounter for generalized patient complaints (4) Dyspnea Allen Bone Jun 08, 2019 13:17
--- NOTE | 2019-06-08 14:06 | NUR ---
RD ASSESSMENT & RECOMMENDATIONS SEE CARE ACTIVITY FOR COMPLETE ASSESSMENT DAILY ESTIMATED NEEDS: Needs based on Morbid obesity, wounds 20-25 110kg adj kcals/kg [id number] total kcals 1.25-1.5 adj g protein/kg 138-165 g total protein 20-25ml/kcal mL/kg 9184-0271 total fluid mLs NUTRITION DIAGNOSIS: 1) Increased pro needs r/t wound healing as evidenced by pt w/ BL buttock stage 3 pressure ulcers (UPDATED). 2) Altered nutrition related lab values r/t clinical status, hyperglycemia as evidenced by elev LDL 114, A1C 6.8 3) Obesity r/t etiology unknown, as evidenced by pt w/ BMI >50, @208% of [place] Body Weight. CURRENT DIET: Low Fat PO DIET RECOMMENDATIONS: LOW FAT /CCHO MED + DOUBLE PROTEIN PORTIONS ADDITIONAL RECOMMENDATIONS: 1) As able, maintain calibrated bed scale wts 2) A1C 6.8-> rec carb control diet + hypoglycemics 3) WOUND CARE: Add GEOFF BID Add Vit C 250mg BID Add MVI w/ Min x1 daily
[2019-06-08] MEDS: Ascorbic Acid 500mg tab ORAL SCH (18:00)
[2019-06-08] MEDS: HydrALAZINE 50mg tab ORAL SCH (18:00)
--- NOTE | 2019-06-08 19:15 | NUR ---
HAND-OFF: Report given to BERENICE Simms. Patient's in stable condition, no s/s of acute distress or SOB. .
--- NOTE | 2019-06-08 19:16 | NUR ---
NURSE NOTES: Received pt from BERENICE Shell. Pt is awake and resting in bed, in no acute distress. IV site intact and patent. Bed locked in lowest position, and call light within reach. Will continue with plan of care.
[2019-06-08] MEDS: Enoxaparin 40mg Inj SUBQ SCH (20:02)
--- NOTE | 2019-06-08 20:27 | Cardiology Report ---
APPROVED REPORT EXAM: Two-dimensional and M-mode echocardiogram with Doppler and color Doppler. INDICATION [place] M-Mode DIMENSIONS IVSd1.0 (0.7-1.1cm)Left Atrium (MM)4.0 (1.6-4.0cm) LVDd5.8 (3.5-5.6cm)Aortic Root3.7 (2.0-3.7cm) PWd1.1 (0.7-1.1cm)Aortic Cusp Exc.2.2 (1.5-2.0cm) LVDs3.9 (2.5-4.0cm) PWs1.5 cm Technically difficult study due to poor acoustical windows and pt's habitus. Normal systolic function and wall motion to extent visualized. Mildly enlarged left ventricular chamber. Left ventricular ejection fraction estimated to be 55-60 %. Study quality precludes accurate assessment of regional wall motion. Mild left ventricular hypertrophy. Anterior Echo-free space, may be due to pericardial fat or effusion. Left atrium at upper limits of normal. All other cardiac chamber sizes are within normal limits. Focal aortic valve sclerosis with adequate cusp excursion. Thickened mitral valve leaflets with normal excursion. Mitral annulus and aortic root calcification. Pulmonic valve not well visualized. Normal tricuspid valve structure. IVC and subcostal views not obtainable due to patient's habitus. A color flow and spectral Doppler study was performed and revealed: No aortic regurgitation. Mild mitral regurgitation. Mitral diastolic velocities suggest reduced left ventricular relaxation c/w mild LV diastolic dysfunction (Grade I ). Trace tricuspid regurgitation. Tricuspid systolic velocities suggests peak right ventricular systolic pressure of 21 mmHg. No pulmonic regurgitation present.
--- NOTE | 2019-06-08 20:51 | Cardiology Report ---
APPROVED REPORT EKG Measurement Heart [id number] [place] 178P [id number] Ectopic atrial rhythm Prolonged QT Abnormal ECG
[2019-06-09] VITALS (7 sets, daily range): BP systolic 147–182; BP diastolic 72–90
[2019-06-09] MEDS: HydrALAZINE 50mg tab ORAL SCH ×4 (00:09→18:06)
[2019-06-09] MEDS: Vancomycin 1gm/D5W 275ml IVPB SCH ×4 (01:59→10:18)
[2019-06-09] MEDS: HYDROcodone/Acetamin 10/325 tab ORAL PRN (07:00)
--- NOTE | 2019-06-09 07:26 | NUR ---
HAND-OFF: Report given to BERENICE Moore. Pt resting in bed in no acute distress. Iv site intact. Bed locked in lowest position, call light within reach. Endorsed plan of care.
--- NOTE | 2019-06-09 07:27 | NUR ---
NURSE NOTES: Received bedside report from Christ NG. Pt. in bed, awake, a/o x 4. Pt. having breakfast. No sign of distress. On R.A. Denies pain at present. Pre-medicated by previous shift. IV at right hand #22g. in placed SL. Bed in low position, locked. Call light within reach. Will cont. to monitor.
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
[2019-06-09] MEDS: Lisinopril 10mg tab ORAL SCH (09:22)
[2019-06-09] MEDS: cefTRIAXone 1 GM in NS 55 ML IVPB SCH (09:22)
[2019-06-09] MEDS: Ascorbic Acid 500mg tab ORAL SCH ×2 (09:22→18:06)
[2019-06-09 09:39] LABS: ANION GAP 8 mmol/L (5-15); BLOOD UREA NITROGEN 10 mg/dL (7-18); CALCIUM 9.1 MG/DL (8.5-10.1); CARBON DIOXIDE 30 MMOL/L (21-32); CHLORIDE 101 MMOL/L (98-107); CREATININE 0.9 MG/DL (0.55-1.30); SODIUM 138 MMOL/L (136-145)
[2019-06-09 09:53] LABS: BASOPHILS % (AUTO) 0.6 % (0.0-2.0); EOSINOPHILS % (AUTO) 3.2 % (0.0-3.0); HEMATOCRIT 40.6 % (42.0-52.0); HEMOGLOBIN 13.1 G/DL (14.2-18.0); LYMPHOCYTES % (AUTO) 31.4 % (20.0-45.0); MEAN CORPUSCULAR VOLUME 93 FL (80-99); MONOCYTES % (AUTO) 8.9 % (1.0-10.0); NEUTROPHILS % (AUTO) 55.9 % (45.0-75.0); PLATELET COUNT 246 K/UL (150-450); RED BLOOD COUNT 4.37 M/UL (4.70-6.10); RED CELL DISTRIBUTION WIDTH 12.4 % (11.6-14.8); WHITE BLOOD COUNT 6.1 K/UL (4.8-10.8)
--- NOTE | 2019-06-09 11:46 | NUR ---
DISCHARGE PLANNING Discharge order noted Patient has been referred to; Ronny BOJORQUEZ [phone] [facility] [phone] [place] [phone] [facility] [phone] Await Acceptance
--- NOTE | 2019-06-09 11:55 | NUR ---
DISCHARGE PLANNING Discharge order noted Patient has been referred to; Ronny BOJORQUEZ [phone] [facility] [phone] [place] [phone] [facility] [phone] [facility] [phone] [facility] [phone] Await Acceptance Addendum: 06/11/19 at 1038 by CHARLES RAVI Ronny BOJORQUEZ - No Bed [facility] - No Bed, spoke with Constance Cali - No male Bed [facility] - No Bed [facility] - No Responds [facility] - Agree to accept patient with letter of agreement
--- NOTE | 2019-06-09 13:37 | Surgery Progress Note ---
Surgery Progress Note Subjective Additional Comments no acute events comfortable stable Objective Last 24 Hour Vital Signs Date Time Temp Pulse Resp B/P (MAP) Pulse Ox O2 Delivery O2 Flow Rate FiO2 06/09/19 12:10 177/72 06/09/19 12:00 97.1 87 20 177/72 (107) 94 06/09/19 11:51 82 06/09/19 09:22 148/85 06/09/19 09:00 Room Air 06/09/19 08:00 97.9 94 20 148/85 (106) 94 06/09/19 07:51 87 06/09/19 06:50 169/80 (109) 06/09/19 06:03 180/88 06/09/19 04:00 98.4 87 20 150/89 (109) 96 06/09/19 04:00 87 06/09/19 00:09 147/90 06/09/19 00:00 90 06/09/19 00:00 97.7 90 20 147/90 (109) 95 06/08/19 21:00 Room Air 06/08/19 20:04 173/90 06/08/19 20:00 99.3 90 20 173/90 (117) 98 06/08/19 20:00 90 06/08/19 18:00 148/93 06/08/19 16:00 81 06/08/19 16:00 97.5 77 20 148/93 (111) 98 I&O Intake and Output 06/08/19 06/09/19 19:00 07:00 Intake Total 660 ml Output Total 1200 ml 1450 ml Balance -540 ml -1450 ml Intake Oral 660 ml Output Urine Total 1200 ml 1450 ml # Voids 4 # Bowel Movements 1 Wound: clean Cardiovascular: RSR Respiratory: clear Abdomen: soft, flat, non-tender, present bowel sounds Extremities: no edema, no tenderness Laboratory Tests Test 06/09/19 08:55 White Blood Count 6.1 K/UL (4.8-10.8) Red Blood Count 4.37 M/UL (4.70-6.10) L Hemoglobin 13.1 G/DL (14.2-18.0) L Hematocrit 40.6 % (42.0-52.0) L Mean Corpuscular Volume 93 FL (80-99) Mean Corpuscular Hemoglobin 29.9 PG (27.0-31.0) Mean Corpuscular Hemoglobin Concent 32.2 G/DL (32.0-36.0) Red Cell Distribution Width 12.4 % (11.6-14.8) Platelet Count 246 K/UL (150-450) Mean Platelet Volume 5.7 FL (6.5-10.1) L Neutrophils (%) (Auto) 55.9 % (45.0-75.0) Lymphocytes (%) (Auto) 31.4 % (20.0-45.0) Monocytes (%) (Auto) 8.9 % (1.0-10.0) Eosinophils (%) (Auto) 3.2 % (0.0-3.0) H Basophils (%) (Auto) 0.6 % (0.0-2.0) Sodium Level 138 MMOL/L (136-145) Potassium Level 4.0 MMOL/L (3.5-5.1) Chloride Level 101 MMOL/L (98-107) Carbon Dioxide Level 30 MMOL/L (21-32) Anion Gap 8 mmol/L (5-15) Blood Urea Nitrogen 10 mg/dL (7-18) Creatinine 0.9 MG/DL (0.55-1.30) Estimat Glomerular Filtration Rate > 60 mL/min (>60) Glucose Level 123 MG/DL (74-106) H Calcium Level 9.1 MG/DL (8.5-10.1) Vancomycin Level Trough 10.8 ug/mL (5.0-12.0) Plan Problems: (1) Incontinence associated dermatitis Assessment & Plan: Pt with Morbid Obesity whom presented on admission with multiple pressure injuries. Full thickness pressure injury L buttocks. Base of wound 80% viable with 20% slough. Macerated borders . Darker skin tone with induration or fluctuance periwound. (L)3.5cm x (W)1cm. Full Thickness pressure injury R buttocks. Base of wound 90% amy ,10% necrotic area noted. Small amt sanguineous exudate noted. Borders macerated. Darker skin tone without erythema ,induration or elevation in skin temp noted. ( L)7.5cm x (W)3cm. Pt verbalized burning at sites of each wound.Dry skin with shearing noted to Sacrum. Intertriginous dermatitis noted to scrotum.erythema with patches of scaly skin with scattered satellite lesions noted to scrotum. Pt's hygiene is grossly neglected. Both heels are dry and callused . No erythema noted to heels. Tx.Plan: Apply Moisture Barrier Paste to R and L buttocks and Sacrum Daily. Cover with Optifoam drsg. daily and prn. Encourage and assist as needed with repositioning at least every 2hours or as tolerated. Apply Cavilon Skin Barrier to both heels. Off-load heels with pillow (2) Decubital ulcer (3) Encounter for generalized patient complaints (4) Dyspnea Allen Bone Jun 09, 2019 13:37
--- NOTE | 2019-06-09 13:46 | NUR ---
*-* INSURANCE *-* UPDATED CLINICALS HAVE BEEN FAXED TO: [facility] F:[phone]
--- NOTE | 2019-06-09 15:14 | NUR ---
CASE MANAGEMENT:REVIEW 06/09/19 SI: RHABDOMYOLYSIS. UTI. DECUB ULCER 97.1 87 20 177/72 94% ON RA H/H-13.1/40.6 GLUCOSE+123 IS: LISINOPRIL PO QD IV VANCOMYCIN Q8HRS IV ROCEPHIN Q24 HYDRALAZINE PO Q6HRS LOVENOX SQ Q24 NORCO PO Q4HRS PRN : TELEMETRY STATUS DCP: HOMELESS PLAN: SINCE PATIENT IS HOMELESS HE WILL NEED SNF PLACEMENT FOR WOUND CARE AND IV ANTIBIOTICS REFERRING TO [facility] PROVIDERS ~ NO SUCCESS OF YET [facility] WILLING TO ACCEPT PATIENT BUT WILL NEED LETTER OF AGREEMENT WOUND CARE~ APPLY MOISTURE BARRIER PASTE TO RT AND LT BUTTOCKS AND SACRUM DAILY. COVER WITH OPTIFOAM DRESSING DAILY AND PRN
[2019-06-09] MEDS: Vancomycin 1.25gm Premix q24h IVPB SCH (16:35)
--- NOTE | 2019-06-09 17:25 | NUR ---
HOMELESS COORDINATOR tried to reach Mental Health Worker (Shoaib) who is currently still on vacation. HC was able to speak with Grace Brianda [phone], she stated she will apply for emergency IHP bed located at different nursing home today, and will follow-up with me about approval. Patient continues to require medical intervention. Will continue to monitor and assist as needed.
--- NOTE | 2019-06-09 19:17 | NUR ---
HAND-OFF: Report given to Neymar PAREDES. Pt. remain stable.
--- NOTE | 2019-06-09 19:18 | NUR ---
NURSE NOTES: Received patient from Marilu NG. Patient is awake and oriented x4, able to make demands known. Patient is on room air, tolerating well, showing no signs of respiratory distress. IV site is right hand 22g, patent and asymptomatic. Bed is locked, placed in lowest position, side rails up x2, bed alarm on, call light within reach. Will continue to monitor.
[2019-06-09] MEDS: Enoxaparin 40mg Inj SUBQ SCH (20:00)
--- NOTE | 2019-06-09 20:15 | NUR ---
NURSE NOTES: 8pm patient's blood pressure was 182/74. After rest repositioning onto the Big Boy Bed patient's blood pressure was 148/80. Will continue to monitor.
[2019-06-10] VITALS (8 sets, daily range): BP systolic 140–153; BP diastolic 66–101
[2019-06-10] MEDS: HydrALAZINE 50mg tab ORAL SCH ×4 (00:05→17:07)
[2019-06-10] MEDS: Vancomycin 1.25gm Premix q24h IVPB SCH ×3 (00:07→15:49)
[2019-06-10] MEDS: HYDROcodone/Acetamin 5/325 tab ORAL PRN (03:21)
--- NOTE | 2019-06-10 07:26 | NUR ---
HAND-OFF: Report given to Min RN. Patient in stable condition.
--- NOTE | 2019-06-10 07:26 | NUR ---
NURSE NOTES: Received report from Neymar RN. Pr lying in bed asleep but easily arousable. AO X4. No c/o pain at this time. No acute distress noted. SR rhythm noted on the monitor. On room air. IV LAC 22G SL patent and asymptomatic. Bed in lowest position and locked. Will continue to plan of care.
--- NOTE | 2019-06-10 08:00 | NUR ---
CASE MANAGEMENT:REVIEW 06/10/19 SI: RHABDOMYOLYSIS. UTI. DECUB ULCER 98.4 91 19 152/93 98% ON RA IS: IV VANCOMYCIN Q8HRS IV ROCEPHIN Q24 HYDRALAZINE PO Q6HRS LOVENOX SQ Q24 NORCO PO Q4HRS PRN : TELEMETRY STATUS DCP: HOMELESS PLAN: SINCE PATIENT IS HOMELESS HE WILL NEED SNF PLACEMENT FOR WOUND CARE AND IV ANTIBIOTICS REFERRING TO [facility] PROVIDERS ~ NO SUCCESS OF YET [facility] WILLING TO ACCEPT PATIENT BUT WILL NEED LETTER OF AGREEMENT WOUND CARE~ APPLY MOISTURE BARRIER PASTE TO RT AND LT BUTTOCKS AND SACRUM DAILY. COVER WITH OPTIFOAM DRESSING DAILY AND PRN
[2019-06-10 08:40] LABS: BASOPHILS % (AUTO) 0.6 % (0.0-2.0); EOSINOPHILS % (AUTO) 4.2 % (0.0-3.0); HEMOGLOBIN 13.6 G/DL (14.2-18.0); LYMPHOCYTES % (AUTO) 32.8 % (20.0-45.0); MEAN CORPUSCULAR VOLUME 94 FL (80-99); MONOCYTES % (AUTO) 6.2 % (1.0-10.0); NEUTROPHILS % (AUTO) 56.2 % (45.0-75.0); PLATELET COUNT 258 K/UL (150-450); RED BLOOD COUNT 4.56 M/UL (4.70-6.10); RED CELL DISTRIBUTION WIDTH 12.6 % (11.6-14.8); WHITE BLOOD COUNT 7.6 K/UL (4.8-10.8)
[2019-06-10 08:57] LABS: ANION GAP 9 mmol/L (5-15); BLOOD UREA NITROGEN 8 mg/dL (7-18); CALCIUM 9.1 MG/DL (8.5-10.1); CARBON DIOXIDE 28 MMOL/L (21-32); CHLORIDE 102 MMOL/L (98-107); CREATININE 0.9 MG/DL (0.55-1.30); POTASSIUM 3.8 MMOL/L (3.5-5.1); SODIUM 139 MMOL/L (136-145)
[2019-06-10] MEDS: Lisinopril 10mg tab ORAL SCH (09:05)
[2019-06-10] MEDS: Ascorbic Acid 500mg tab ORAL SCH ×2 (09:05→17:07)
[2019-06-10] MEDS: cefTRIAXone 1 GM in NS 55 ML IVPB SCH (09:07)
--- NOTE | 2019-06-10 09:50 | NUR ---
NURSE NOTES: pt strongly asked to use the previous bed from wide bed. Per patient, he does not like the wide bed. Asked Miguel physical therapy to help the RN for transferring. Pt refused standing up from the bed. He states "I may get dizzy when i stand up". Encouraged the pt to help us for transferring but he states " I am going to rolling down to another bed if you attach the regular bed to this wide bed". The patient is able to transfer from wide bed to regular bed by himself without any assist from staffs. Will continue to encourage the pt for exercise and change the position. At this time he reused to use the [facility] bed due to c/o being fatigue.
--- NOTE | 2019-06-10 14:31 | NUR ---
*-* INSURANCE *-* UPDATED CLINICALS AND REVIEW HAVE BEEN FAXED TO: [facility] F:[phone]
--- NOTE | 2019-06-10 15:45 | Surgery Progress Note ---
Surgery Progress Note Subjective Symptoms: improved Objective Last 24 Hour Vital Signs Date Time Temp Pulse Resp B/P (MAP) Pulse Ox O2 Delivery O2 Flow Rate FiO2 06/10/19 12:56 146/88 06/10/19 12:00 89 06/10/19 12:00 98.0 87 22 146/88 (107) 97 06/10/19 09:05 146/101 06/10/19 09:00 Room Air 06/10/19 08:00 80 06/10/19 08:00 98.2 93 23 146/101 (116) 95 06/10/19 05:40 152/92 06/10/19 04:00 98.4 91 19 152/92 (112) 98 06/10/19 03:36 94 06/10/19 00:05 140/74 06/10/19 00:00 98.8 95 18 140/74 (96) 97 06/09/19 23:38 99 06/09/19 21:00 Room Air 06/09/19 20:02 86 06/09/19 20:00 97.7 92 20 182/74 (110) 94 06/09/19 19:53 89 06/09/19 18:06 176/80 06/09/19 16:00 97.9 93 20 176/80 (112) 93 I&O Intake and Output 06/09/19 06/10/19 19:00 07:00 Intake Total 390 ml 775.000 ml Output Total 1600 ml 800 ml Balance -1210 ml -25.000 ml Intake Oral 390 ml 500 ml IV Total 275.000 ml Output Urine Total 1600 ml 800 ml Dressing: saturated Wound: clean Cardiovascular: RSR Respiratory: clear Abdomen: soft, flat, present bowel sounds Extremities: edema, no cyanosis Laboratory Tests Test 06/10/19 07:45 06/10/19 15:00 White Blood Count 7.6 K/UL (4.8-10.8) Red Blood Count 4.56 M/UL (4.70-6.10) L Hemoglobin 13.6 G/DL (14.2-18.0) L Hematocrit 43.0 % (42.0-52.0) Mean Corpuscular Volume 94 FL (80-99) Mean Corpuscular Hemoglobin 29.7 PG (27.0-31.0) Mean Corpuscular Hemoglobin Concent 31.6 G/DL (32.0-36.0) L Red Cell Distribution Width 12.6 % (11.6-14.8) Platelet Count 258 K/UL (150-450) Mean Platelet Volume 5.9 FL (6.5-10.1) L Neutrophils (%) (Auto) 56.2 % (45.0-75.0) Lymphocytes (%) (Auto) 32.8 % (20.0-45.0) Monocytes (%) (Auto) 6.2 % (1.0-10.0) Eosinophils (%) (Auto) 4.2 % (0.0-3.0) H Basophils (%) (Auto) 0.6 % (0.0-2.0) Sodium Level 139 MMOL/L (136-145) Potassium Level 3.8 MMOL/L (3.5-5.1) Chloride Level 102 MMOL/L (98-107) Carbon Dioxide Level 28 MMOL/L (21-32) Anion Gap 9 mmol/L (5-15) Blood Urea Nitrogen 8 mg/dL (7-18) Creatinine 0.9 MG/DL (0.55-1.30) Estimat Glomerular Filtration Rate > 60 mL/min (>60) Glucose Level 113 MG/DL (74-106) H Calcium Level 9.1 MG/DL (8.5-10.1) Vancomycin Level Trough 15.3 ug/mL (5.0-12.0) H Plan Problems: (1) Incontinence associated dermatitis Assessment & Plan: Pt with Morbid Obesity whom presented on admission with multiple pressure injuries. Full thickness pressure injury L buttocks. Base of wound 80% viable with 20% slough. Macerated borders . Darker skin tone with induration or fluctuance periwound. (L)3.5cm x (W)1cm. Full Thickness pressure injury R buttocks. Base of wound 90% amy ,10% necrotic area noted. Small amt sanguineous exudate noted. Borders macerated. Darker skin tone without erythema ,induration or elevation in skin temp noted. ( L)7.5cm x (W)3cm. Pt verbalized burning at sites of each wound.Dry skin with shearing noted to Sacrum. Intertriginous dermatitis noted to scrotum.erythema with patches of scaly skin with scattered satellite lesions noted to scrotum. Pt's hygiene is grossly neglected. Both heels are dry and callused . No erythema noted to heels. Tx.Plan: Apply Moisture Barrier Paste to R and L buttocks and Sacrum Daily. Cover with Optifoam drsg. daily and prn. Encourage and assist as needed with repositioning at least every 2hours or as tolerated. Apply Cavilon Skin Barrier to both heels. Off-load heels with pillow (2) Decubital ulcer (3) Encounter for generalized patient complaints (4) Dyspnea Allen Bone Jun 10, 2019 15:45
[2019-06-10] MEDS ORDERED: HydrALAZINE 10mg Tab ORAL PRN (16:00)
[2019-06-10] MEDS ORDERED: Nitroglycerin Subl 0.4mg tab SL PRN (16:00)
--- NOTE | 2019-06-10 16:10 | NUR ---
HAND-OFF: Report given to Rose Marie NG. Tele box removed. No signs of distress noted. Pt remains stable.
--- NOTE | 2019-06-10 16:15 | NUR ---
NURSE NOTES: Received report from Pedro RN from 2E. Pt transferred 4E [id number]. Pt calm, talkative, no complaints of pain, no apparent distress noted, bed in lowest position, call light within reach. Vitals obtained, see flowsheet
[2019-06-10] MEDS ORDERED: HYDROcodone/Acetamin 10/325 tab ORAL PRN (17:00)
[2019-06-10] MEDS ORDERED: HYDROcodone/Acetamin 5/325 tab ORAL PRN (17:00)
[2019-06-10] MEDS ORDERED: NS 275ml ONE (18:10)
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
--- NOTE | 2019-06-10 19:31 | NUR ---
HAND-OFF: Report given to BERENICE Starks.
--- NOTE | 2019-06-10 20:00 | NUR ---
NURSE NOTES: Received patient awake,alert,verbal,resting in bed without complaints.
[2019-06-10] MEDS: Enoxaparin 40mg Inj SUBQ SCH (20:18)
[2019-06-10] MEDS: VANCOMYCIN 1.5 GM IVPB SCH (22:00)
[2019-06-10] MEDS ORDERED: Vancomycin 1.5gm Premix IVPB SCH (22:00)
[2019-06-11] MEDS: HydrALAZINE 50mg tab ORAL SCH ×4 (00:04→17:14)
[2019-06-11] MEDS ORDERED: HYDROcodone/Acetamin 5/325 tab ORAL PRN (00:30)
[2019-06-11 04:00] VITALS: BP 132/68
[2019-06-11] MEDS: VANCOMYCIN 1.5 GM IVPB SCH ×4 (05:32→22:00)
[2019-06-11 07:20] LABS: BASOPHILS % (AUTO) 0.6 % (0.0-2.0); EOSINOPHILS % (AUTO) 3.9 % (0.0-3.0); HEMATOCRIT 42.2 % (42.0-52.0); HEMOGLOBIN 13.3 G/DL (14.2-18.0); LYMPHOCYTES % (AUTO) 31.3 % (20.0-45.0); MEAN CORPUSCULAR VOLUME 95 FL (80-99); MONOCYTES % (AUTO) 5.1 % (1.0-10.0); NEUTROPHILS % (AUTO) 59.2 % (45.0-75.0); PLATELET COUNT 283 K/UL (150-450); RED BLOOD COUNT 4.46 M/UL (4.70-6.10); RED CELL DISTRIBUTION WIDTH 12.6 % (11.6-14.8); WHITE BLOOD COUNT 9.4 K/UL (4.8-10.8)
--- NOTE | 2019-06-11 07:30 | NUR ---
HAND-OFF: Report given to Isabelle Sebastian RN.
[2019-06-11 07:52] LABS: ALANINE AMINOTRANSFERASE 26 U/L (12-78); ALBUMIN 2.7 G/DL (3.4-5.0); ALBUMIN/GLOBULIN RATIO 0.6 (1.0-2.7); ALKALINE PHOSPHATASE 77 U/L (46-116); ANION GAP 9 mmol/L (5-15); ASPARTATE AMINO TRANSFERASE 22 U/L (15-37); BILIRUBIN,TOTAL 0.4 MG/DL (0.2-1.0); BLOOD UREA NITROGEN 9 mg/dL (7-18); CARBON DIOXIDE 27 MMOL/L (21-32); CHLORIDE 101 MMOL/L (98-107); CREATININE 0.9 MG/DL (0.55-1.30); POTASSIUM 3.6 MMOL/L (3.5-5.1); SODIUM 137 MMOL/L (136-145)
[2019-06-11 08:00] VITALS: BP 118/68
--- NOTE | 2019-06-11 08:12 | NUR ---
NURSE NOTES: Patient is alert and oriented. Side rails are up x2, bed is locked, in lowest position, and call light is within reach. Will continue to monitor.
[2019-06-11] MEDS: Ascorbic Acid 500mg tab ORAL SCH ×2 (08:42→17:13)
[2019-06-11] MEDS: Lisinopril 10mg tab ORAL SCH (08:47)
[2019-06-11] MEDS: HYDROcodone/Acetamin 10/325 tab ORAL PRN ×2 (08:48→20:58)
[2019-06-11] MEDS ORDERED: cefTRIAXone 1 GM in NS 55 ML IVPB SCH (09:00)
--- NOTE | 2019-06-11 09:50 | NUR ---
*-* INSURANCE *-* UPDATED CLINICALS HAVE BEEN FAXED TO: [facility] F:[phone]
--- NOTE | 2019-06-11 10:39 | NUR ---
DISCHARGE PLANNING Discharge order noted Patient has been referred to; [facility] [phone] [facility] [phone] [facility] [phone] [facility] [phone] [place] [phone] [facility] [phone] Await Acceptance Addendum: 06/11/19 at 1106 by KAYLIN AGUILERA LVN LVN [place] ~ SPOKE WITH DIANDRA ~ HE WILL CALL US BACK [place] ~ SPOKE WITH DARSHAN ~ THEY DO NOT HAVE ANY AVAILABLE BEDS [facility] ~ SPOKE WITH MIRIAM ~ NO SNF BEDS AVAILABLE, ONLY SUB ACUTE BEDS AVAILABLE [facility] ~ SPOKE WITH BLANCA ~ SHE IS STILL REVIEWING THE CLINICALS REFERRED TO DOREEN Emery;[phone] Addendum: 06/11/19 at 1511 by KAYLIN AGUILERA LVN LVN DOREEN DEXTER ~ [facility] ~ DECLINED D/T HOMELESSNESS [facility] ~ DIANDRA ~ UNABLE TO ACCEPT
[2019-06-11 12:00] VITALS: BP 147/70
--- NOTE | 2019-06-11 12:25 | NUR ---
Social Service Note SW and Homeless Coordinator met with patient to address impending dc planning. Patient has been declined at multiple nursing facilities. SW discussed patient's refusal to work with PT. Prior to admission patient was living on the streets in his wheelchair and was independently transferring self. Patient states he is unable to ambulate. Patient states he is willing to work with PT and complete assessment of function. Homeless coordinator is in contact with patient' mental health provider regarding [facility]/transitional housing placement. Patient continues to refuse board and care placement. Patient would like placement at the least cost to him out of pocket. Will continue to monitor and follow up.
--- NOTE | 2019-06-11 12:36 | Surgery Progress Note ---
Surgery Progress Note Subjective Symptoms: improved Objective Last 24 Hour Vital Signs Date Time Temp Pulse Resp B/P (MAP) Pulse Ox O2 Delivery O2 Flow Rate FiO2 06/11/19 12:27 147/70 06/11/19 12:00 98.5 91 19 147/70 (95) 95 06/11/19 08:47 118/68 06/11/19 08:15 Room Air 06/11/19 08:00 98.5 91 20 118/68 (85) 95 06/11/19 05:32 132/68 06/11/19 04:00 97.7 83 18 132/68 (89) 98 06/11/19 00:36 98.0 06/11/19 00:04 144/66 06/10/19 23:58 98.0 89 18 144/66 (92) 97 06/10/19 21:15 Room Air 06/10/19 20:00 97.7 99 18 149/78 (101) 96 06/10/19 17:07 145/86 06/10/19 16:15 99.1 91 16 145/86 (105) 96 06/10/19 15:51 97.4 87 22 153/82 (105) 94 06/10/19 12:56 146/88 I&O Intake and Output 06/10/19 06/11/19 19:00 07:00 Intake Total 750 ml 412.5 ml Output Total 300 ml Balance 450 ml 412.5 ml Intake Oral 420 ml IV Total 330 ml 412.5 ml Output Urine Total 300 ml # Voids 3 Dressing: saturated Wound: clean Cardiovascular: RSR Respiratory: clear Abdomen: soft, non-tender, present bowel sounds Extremities: no cyanosis Laboratory Tests Test 06/10/19 15:00 06/11/19 05:52 Vancomycin Level Trough 15.3 ug/mL (5.0-12.0) H White Blood Count 9.4 K/UL (4.8-10.8) Red Blood Count 4.46 M/UL (4.70-6.10) L Hemoglobin 13.3 G/DL (14.2-18.0) L Hematocrit 42.2 % (42.0-52.0) Mean Corpuscular Volume 95 FL (80-99) Mean Corpuscular Hemoglobin 29.9 PG (27.0-31.0) Mean Corpuscular Hemoglobin Concent 31.5 G/DL (32.0-36.0) L Red Cell Distribution Width 12.6 % (11.6-14.8) Platelet Count 283 K/UL (150-450) Mean Platelet Volume 6.3 FL (6.5-10.1) L Neutrophils (%) (Auto) 59.2 % (45.0-75.0) Lymphocytes (%) (Auto) 31.3 % (20.0-45.0) Monocytes (%) (Auto) 5.1 % (1.0-10.0) Eosinophils (%) (Auto) 3.9 % (0.0-3.0) H Basophils (%) (Auto) 0.6 % (0.0-2.0) Sodium Level 137 MMOL/L (136-145) Potassium Level 3.6 MMOL/L (3.5-5.1) Chloride Level 101 MMOL/L (98-107) Carbon Dioxide Level 27 MMOL/L (21-32) Anion Gap 9 mmol/L (5-15) Blood Urea Nitrogen 9 mg/dL (7-18) Creatinine 0.9 MG/DL (0.55-1.30) Estimat Glomerular Filtration Rate > 60 mL/min (>60) Glucose Level 110 MG/DL (74-106) H Calcium Level 9.0 MG/DL (8.5-10.1) Total Bilirubin 0.4 MG/DL (0.2-1.0) Aspartate Amino Transf (AST/SGOT) 22 U/L (15-37) Alanine Aminotransferase (ALT/SGPT) 26 U/L (12-78) Alkaline Phosphatase 77 U/L (46-116) Total Protein 7.3 G/DL (6.4-8.2) Albumin 2.7 G/DL (3.4-5.0) L Globulin 4.6 g/dL Albumin/Globulin Ratio 0.6 (1.0-2.7) L Plan Problems: (1) Incontinence associated dermatitis Assessment & Plan: Pt with Morbid Obesity whom presented on admission with multiple pressure injuries. Full thickness pressure injury L buttocks. Base of wound 80% viable with 20% slough. Macerated borders . Darker skin tone with induration or fluctuance periwound. (L)3.5cm x (W)1cm. Full Thickness pressure injury R buttocks. Base of wound 90% amy ,10% necrotic area noted. Small amt sanguineous exudate noted. Borders macerated. Darker skin tone without erythema ,induration or elevation in skin temp noted. ( L)7.5cm x (W)3cm. Pt verbalized burning at sites of each wound.Dry skin with shearing noted to Sacrum. Intertriginous dermatitis noted to scrotum.erythema with patches of scaly skin with scattered satellite lesions noted to scrotum. Pt's hygiene is grossly neglected. Both heels are dry and callused . No erythema noted to heels. Tx.Plan: Apply Moisture Barrier Paste to R and L buttocks and Sacrum Daily. Cover with Optifoam drsg. daily and prn. Encourage and assist as needed with repositioning at least every 2hours or as tolerated. Apply Cavilon Skin Barrier to both heels. Off-load heels with pillow (2) Decubital ulcer (3) Encounter for generalized patient complaints (4) Dyspnea Allen Bone Jun 11, 2019 12:36
--- NOTE | 2019-06-11 13:55 | NUR ---
PT WEEKLY PROGRESS NOTE Patient with c/o dizziness with movement/sitting up therefore patient has been reluctant to sit up despite education regarding benefits of OOB activities. Patient has been able to sit up at EOB x1; participates with LE exercises supine in bed and has also been educated in bed re-positioning and turning to prevent be Addendum: 06/11/19 at 1449 by TR DIAZ PT pressure sores. Patient will benefit from continued skilled inpatient PT intervention to attempt to progress with bed mobility and OOB activities.
--- NOTE | 2019-06-11 15:14 | NUR ---
CASE MANAGEMENT:REVIEW 06/11/19 SI: RHABDOMYOLYSIS. UTI. DECUB ULCER 98.4 91 19 152/93 98% ON RA IS: IV VANCOMYCIN Q8HRS IV ROCEPHIN Q24 HYDRALAZINE PO Q6HRS LOVENOX SQ Q24 NORCO PO Q4HRS PRN : TELEMETRY STATUS DCP: HOMELESS PLAN: SINCE PATIENT IS HOMELESS HE WILL NEED SNF PLACEMENT FOR WOUND CARE AND IV ANTIBIOTICS REFERRING TO [facility] PROVIDERS ~ NO SUCCESS OF YET [facility] WILLING TO ACCEPT PATIENT BUT WILL NEED LETTER OF AGREEMENT WOUND CARE~ APPLY MOISTURE BARRIER PASTE TO RT AND LT BUTTOCKS AND SACRUM DAILY. COVER WITH OPTIFOAM DRESSING DAILY AND PRN
--- NOTE | 2019-06-11 15:29 | NUR ---
NURSE NOTES:WOUND CARE FOLLOW-UP NOTES:Pressure injuries to Sacrum, R and L buttocks have resolved. Dry,pink epithelial noted to sacrum ,R and L buttocks. Pt verbalized sites are naphthalene still operator when minimally palpated. Pt demonstrated ability to reposition self when cued and was re-educated on wound prevention. Encouraged to frequently reposition self in bed and to avoid sliding skin against bed linen when repositioning. Encouraged to off-lift buttocks when repositioning and to keep heels floated off bed with pillows. Tx.Plan: Apply Moisture barrier paste to sacrum,R and L buttocks. Cover with Optifoam drsg. Change every 3 days and prn. Encourage pt to frequently reposition self in bed. Off-load heels with pillow
[2019-06-11 16:00] VITALS: BP 138/72
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
--- NOTE | 2019-06-11 17:51 | NUR ---
DISCHARGE PLANNING Discharge order noted Patient has been referred to; [facility] [phone] [facility] [phone] [facility] [phone] [facility] [employer] [facility] [phone] 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 ~ spoke with Ne ~ Homeless and cocaine use. Iban Ramosa ~ spoke with Jin ~ No beds [facility] ~ spoke with Laure ~ Homeless patient [facility] ~ No responds [facility] ~ no responds [facility]. ~ spoke with Hector ~ No beds
--- NOTE | 2019-06-11 19:15 | NUR ---
HAND-OFF: Report given to BERENICE Starks.
--- NOTE | 2019-06-11 19:39 | NUR ---
NURSE NOTES: Received patient comfortably resting in bed without complaints.
[2019-06-11 20:00] VITALS: BP 156/77
[2019-06-11] MEDS: Enoxaparin 40mg Inj SUBQ SCH (20:54)
[2019-06-12 00:06] VITALS: BP 144/79
[2019-06-12] MEDS: HydrALAZINE 50mg tab ORAL SCH ×4 (00:10→17:12)
--- NOTE | 2019-06-12 01:22 | NUR ---
HAND-OFF: Report given to Teri Alba RN.
[2019-06-12] MEDS: HYDROcodone/Acetamin 10/325 tab ORAL PRN ×2 (01:31→17:16)
[2019-06-12 04:00] VITALS: BP 140/73
--- NOTE | 2019-06-12 07:56 | NUR ---
NURSE NOTES: pt in bed with no sob nor in any form of distress noted. breathing regular and unlabored. denies pain at this time. will continue to monitor
[2019-06-12 08:00] VITALS: BP 171/85
[2019-06-12] MEDS: Ascorbic Acid 500mg tab ORAL SCH ×2 (09:05→17:12)
[2019-06-12] MEDS: Lisinopril 10mg tab ORAL SCH (09:05)
[2019-06-12] MEDS: Vancomycin 1.5gm Premix IVPB SCH ×2 (09:06→21:08)
--- NOTE | 2019-06-12 10:43 | NUR ---
CASE MANAGEMENT:REVIEW 06/11/19 SI: RHABDOMYOLYSIS. UTI. DECUB ULCER 98.4 91 19 152/93 98% ON RA IS: IV VANCOMYCIN Q8HRS IV ROCEPHIN Q24 HYDRALAZINE PO Q6HRS LOVENOX SQ Q24 NORCO PO Q4HRS PRN : TELEMETRY STATUS DCP: HOMELESS PLAN: SINCE PATIENT IS HOMELESS HE WILL NEED SNF PLACEMENT FOR WOUND CARE AND IV ANTIBIOTICS REFERRING TO [facility] PROVIDERS ~ NO SUCCESS OF YET [facility] WILLING TO ACCEPT PATIENT BUT WILL NEED LETTER OF AGREEMENT WOUND CARE~ APPLY MOISTURE BARRIER PASTE TO RT AND LT BUTTOCKS AND SACRUM DAILY. COVER WITH OPTIFOAM DRESSING DAILY AND PRN DISCHARGE PLANNING SNF PLACEMENT PER MD'S REQUEST FOR WOUND CARE....NEED SNF LIST MESSAGES LEFT FOR [facility] FREIGHT LOADING SUPERVISOR LYNN [phone] ...WAITING FOR RETURN PHONE CALL MESSAGE LEFT FOR [facility] REGISTERED SALES ASSISTANT [employer] T: [phone]...WAITING FOR RETURN PHONE CALL ATTEMPTED TO LEAVE [facility] FOR [facility] GABRIELA T:[phone]....MAILBOX FULL X2 DAYS REFERRED TO: [facility] T: [phone] [facility] T: [phone] [facility] T: [phone] [place] T: [phone] [facility] T:[phone] [facility] T:[phone]
--- NOTE | 2019-06-12 10:48 | NUR ---
DISCHARGE PLANNING MESSAGE LEFT FOR [facility] SENIOR BENEFITS ANALYST LYNN [phone] ...WAITING FOR RETURN PHONE CALL MESSAGE LEFT FOR [facility] MANAGER APPOINTMENT [employer] T: [phone]...WAITING FOR RETURN PHONE CALL ATTEMPTED TO LEAVE [facility] FOR [facility] G[facility] T:[phone]....MAILBOX FULL X2 DAYS IN THE MEAN TIME PATIENT HAS BEEN REFERRED TO: [facility] T: [phone] ~ [facility] NO MALE BEDS [place] T: [phone] [facility] NO MALE BEDS [facility] T:[phone] [facility] T: [phone] [facility] T: [phone]
--- NOTE | 2019-06-12 10:58 | NUR ---
CASE MANAGEMENT:REVIEW 06/12/19 SI: RHABDOMYOLYSIS. UTI. DECUB ULCER 98.2 86 19 171/85 97% ON RA IS: IV VANCOMYCIN Q12HR LISINOPRIL PO QD HYDRALAZINE PO Q6HRS LOVENOX SQ Q24 NORCO PO Q4HRS PRN : TELEMETRY STATUS DCP: HOMELESS PLAN: SINCE PATIENT IS HOMELESS HE WILL NEED SNF PLACEMENT FOR WOUND CARE AND IV ANTIBIOTICS REFERRING TO [facility] PROVIDERS ~ NO SUCCESS OF YET [facility] WILLING TO ACCEPT PATIENT BUT WILL NEED LETTER OF AGREEMENT WOUND CARE~ APPLY MOISTURE BARRIER PASTE TO RT AND LT BUTTOCKS AND SACRUM DAILY. COVER WITH OPTIFOAM DRESSING DAILY AND PRN DISCHARGE PLANNING SNF PLACEMENT PER MD'S REQUEST FOR WOUND CARE....NEED SNF LIST MESSAGES LEFT FOR [facility] WHITE METAL CORROSION PROOFER LYNN [phone] ...WAITING FOR RETURN PHONE CALL MESSAGE LEFT FOR [facility] RESPIRATORY CLINICIAN [place] T: [phone]...WAITING FOR RETURN PHONE CALL ATTEMPTED TO LEAVE [facility] G[facility]RIELA T:[phone]....MAILBOX FULL X2 DAYS REFERRED TO: [facility] T: [phone] [facility] T: [phone] [facility] T: [phone] [facility] T: [phone] [facility] T:[phone] [facility] T:[phone]
[2019-06-12 12:00] VITALS: BP 138/72
--- NOTE | 2019-06-12 12:12 | NUR ---
*-* INSURANCE *-* UPDATED CLINICALS & REVIEWS HAVE BEEN FAXED TO: [facility] F:[phone]
--- NOTE | 2019-06-12 12:36 | Surgery Progress Note ---
Surgery Progress Note Subjective Additional Comments Patient seen and examined at bedside. States he is doing well but has not been using his wheelchair often lately. States he rather late in bed. When asked about turning states he can but does not turn himself often. We again discussed his wounds and he expressed understanding and desire to get better. Objective Last 24 Hour Vital Signs Date Time Temp Pulse Resp B/P (MAP) Pulse Ox O2 Delivery O2 Flow Rate FiO2 06/12/19 12:16 138/72 06/12/19 12:00 98.3 88 20 138/72 (94) 98 06/12/19 09:05 171/85 06/12/19 09:00 Room Air 06/12/19 08:00 98.2 86 19 171/85 (113) 97 06/12/19 05:59 140/73 06/12/19 04:00 98.3 92 19 140/73 (95) 98 06/12/19 00:10 144/79 06/12/19 00:06 98.2 91 20 144/79 (100) 96 06/11/19 20:13 Room Air 06/11/19 20:00 98.3 92 20 156/77 (103) 95 06/11/19 17:14 138/72 06/11/19 16:00 98.9 86 20 138/72 (94) 93 I&O Intake and Output 06/11/19 06/12/19 19:00 07:00 Intake Total 1037.5 ml Output Total 1650 ml 900 ml Balance -612.5 ml -900 ml Intake Oral 900 ml IV Total 137.5 ml Output Urine Total 1650 ml 900 ml # Voids 4 Cardiovascular: RSR Respiratory: clear Abdomen: soft, present bowel sounds Extremities: no cyanosis Laboratory Tests Test 06/11/19 21:08 Vancomycin Level Trough 26.5 ug/mL (5.0-12.0) H Plan Problems: (1) Incontinence associated dermatitis Assessment & Plan: Pt with Morbid Obesity whom presented on admission with multiple pressure injuries. Full thickness pressure injury L buttocks. Base of wound 80% viable with 20% slough. Macerated borders . Darker skin tone with induration or fluctuance periwound. (L)3.5cm x (W)1cm. Full Thickness pressure injury R buttocks. Base of wound 90% amy ,10% necrotic area noted. Small amt sanguineous exudate noted. Borders macerated. Darker skin tone without erythema ,induration or elevation in skin temp noted. ( L)7.5cm x (W)3cm. Pt verbalized burning at sites of each wound.Dry skin with shearing noted to Sacrum. Intertriginous dermatitis noted to scrotum.erythema with patches of scaly skin with scattered satellite lesions noted to scrotum. Pt's hygiene is grossly neglected. Both heels are dry and callused . No erythema noted to heels. Tx.Plan: Apply Moisture Barrier Paste to R and L buttocks and Sacrum Daily. Cover with Optifoam drsg. daily and prn. Encourage and assist as needed with repositioning at least every 2hours or as tolerated. Apply [place] Skin Barrier to both heels. Off-load heels with pillow (2) Decubital ulcer (3) Encounter for generalized patient complaints (4) Dyspnea Allen Bone Jun 12, 2019 12:36
--- NOTE | 2019-06-12 15:01 | NUR ---
RD ASSESSMENT & RECOMMENDATIONS SEE CARE ACTIVITY FOR COMPLETE ASSESSMENT DAILY ESTIMATED NEEDS: Needs based on Morbid obesity, wounds 20-25 110kg adj kcals/kg 1142-7420 total kcals 1.25-1.5 adj g protein/kg 138-165 g total protein 20-25ml/kcal mL/kg 4986-1045 total fluid mLs NUTRITION DIAGNOSIS: 1) Increased pro needs r/t wound healing as evidenced by pt w/ BL buttock stage 3 ulcers upon adm -> now resolved. (UPDATED) 2) Altered nutrition related lab values r/t clinical status, hyperglycemia as evidenced by elev LDL 114, A1C 6.8 3) Obesity r/t etiology unknown, as evidenced by pt w/ BMI >50, @208% of [place] Body Weight. CURRENT DIET: Low Fat PO DIET RECOMMENDATIONS: LOW FAT /CCHO MED + DOUBLE PROTEIN PORTIONS ADDITIONAL RECOMMENDATIONS: 1) As able, maintain calibrated bed scale wts 2) A1C 6.8-> rec carb control diet + hypoglycemics 3) WOUND CARE: Add GEOFF BID : continue MVI and Vit C .
[2019-06-12 16:00] VITALS: BP 145/99
--- NOTE | 2019-06-12 16:52 | NUR ---
HOMELESS COORDINATOR DISCHARGE PLANNING HC spoke with Christelle Booker, Mental Health child welfare caseworker about prison placement for patient. Christelle faxed over release forms to start placement process. HC had patient sign and submitted forms back to Christelle Booker [phone] Await Response
--- NOTE | 2019-06-12 19:09 | NUR ---
HAND-OFF: Report given to BERENICE Molina.
[2019-06-12 20:00] VITALS: BP 115/94
--- NOTE | 2019-06-12 20:03 | NUR ---
NURSE NOTES: Received patient in bed, bedbound, awake, alert, oriented x4, IV site is clean, dry and intact. Call light is within reach, bed is in low position, locked and larm is on, will continue to assess for comfort and safety.
[2019-06-12] MEDS: Enoxaparin 40mg Inj SUBQ SCH (21:03)
--- NOTE | 2019-06-12 23:34 | NUR ---
NURSE NOTES: Patients IV infiltrated while infusing Vancomycin, CN tried to restart new IV, IV inserted but per patient was painful to touch. Notified , Thaddeusu, will try to restart a new IV.
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
[2019-06-13] VITALS: BP 145/78
[2019-06-13] MEDS: HydrALAZINE 50mg tab ORAL SCH ×4 (00:21→17:15)
[2019-06-13] MEDS: HYDROcodone/Acetamin 10/325 tab ORAL PRN ×3 (01:26→17:15)
[2019-06-13 04:00] VITALS: BP 148/72
--- NOTE | 2019-06-13 06:45 | NUR ---
HAND-OFF: Report given to Ida FRANZ.
--- NOTE | 2019-06-13 07:30 | NUR ---
NURSE NOTES: Received patient in bed, a/a/ox4, IV site is clean, patent and intact. able to feed self indepedently. refused to have p200 mattress placed. Call light is within reach, bed is in low position, locked and alarm is on, will continue to assess for comfort and safety. will cont to monitor.
[2019-06-13 08:00] VITALS: BP 145/57
[2019-06-13] MEDS: Lisinopril 10mg tab ORAL SCH (08:41)
[2019-06-13] MEDS: Ascorbic Acid 500mg tab ORAL SCH ×2 (08:41→17:15)
--- NOTE | 2019-06-13 11:05 | NUR ---
NURSE NOTES: wound care treatment rendered. wound photo taken and uploaded. patient remained refused for P200 mattress placed. will cont to monitor.
[2019-06-13 11:48] VITALS: BP 146/61
--- NOTE | 2019-06-13 14:43 | NUR ---
CASE MANAGEMENT:REVIEW 06/13/19 SI: RHABDOMYOLYSIS. UTI. DECUB ULCER T 97.9 HR 84 RR 18 B/P 146/61 SATS 96% ON RA NO LABS TODAY IS: IV VANCOMYCIN Q12HR LISINOPRIL PO QD HYDRALAZINE PO Q6HRS LOVENOX SQ Q24 NORCO PO Q4HRS PRN : MED/SURG STATUS
[2019-06-13 16:00] VITALS: BP_SYST 108; BP_SYST 141; BP_DIAS 61; BP_DIAS 66
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
--- NOTE | 2019-06-13 19:04 | NUR ---
HAND-OFF: Report given to Tracy.
--- NOTE | 2019-06-13 19:54 | NUR ---
NURSE NOTES: Received patient in bed, awake, alert, oriented x4, able to make his needs known, bed bound, follows command, patient is able to use urinal and bedpan, call light is within reach, bed is in low position,locked and alarm is on. IV site clean, dry and intact. Will continue to monitor for safety and comfort.
[2019-06-13 20:00] VITALS: BP 121/64
[2019-06-13] MEDS: Enoxaparin 40mg Inj SUBQ SCH (21:06)
--- NOTE | 2019-06-13 21:51 | Surgery Progress Note ---
Surgery Progress Note Subjective Additional Comments resting comfortable no acute events pending placement does not move side to side often still. Objective Last 24 Hour Vital Signs Date Time Temp Pulse Resp B/P (MAP) Pulse Ox O2 Delivery O2 Flow Rate FiO2 06/13/19 17:45 98.2 06/13/19 17:15 141/66 06/13/19 16:00 98.2 81 18 141/66 (91) 97 06/13/19 12:34 84 146/61 06/13/19 12:34 146/61 06/13/19 11:48 97.9 84 18 146/61 (89) 96 06/13/19 09:00 Room Air 06/13/19 08:41 145/57 06/13/19 08:00 97.5 87 20 145/57 (86) 06/13/19 05:50 148/72 06/13/19 04:00 97.4 74 20 148/72 (97) 06/13/19 00:21 145/89 06/13/19 00:00 98.1 92 19 145/78 (100) I&O Intake and Output 06/12/19 06/13/19 19:00 07:00 Intake Total 1795.0 ml 140 ml Output Total 2100 ml 400 ml Balance -305.0 ml -260 ml Intake Oral 1520 ml 140 ml IV Total 275.0 ml Output Urine Total 2100 ml 400 ml # Bowel Movements 1 Dressing: other Wound: other Drains: other Cardiovascular: RSR Respiratory: decreased breath sounds Abdomen: soft, present bowel sounds, non-distended Extremities: no cyanosis Plan Problems: (1) Incontinence associated dermatitis Assessment & Plan: Pt with Morbid Obesity whom presented on admission with multiple pressure injuries. Full thickness pressure injury L buttocks. Base of wound 80% viable with 20% slough. Macerated borders . Darker skin tone with induration or fluctuance periwound. (L)3.5cm x (W)1cm. Full Thickness pressure injury R buttocks. Base of wound 90% amy ,10% necrotic area noted. Small amt sanguineous exudate noted. Borders macerated. Darker skin tone without erythema ,induration or elevation in skin temp noted. ( L)7.5cm x (W)3cm. Pt verbalized burning at sites of each wound.Dry skin with shearing noted to Sacrum. Intertriginous dermatitis noted to scrotum.erythema with patches of scaly skin with scattered satellite lesions noted to scrotum. Pt's hygiene is grossly neglected. Both heels are dry and callused . No erythema noted to heels. Tx.Plan: Apply Moisture Barrier Paste to R and L buttocks and Sacrum Daily. Cover with Optifoam drsg. daily and prn. Encourage and assist as needed with repositioning at least every 2hours or as tolerated. Apply Cavilon Skin Barrier to both heels. Off-load heels with pillow (2) Decubital ulcer (3) Encounter for generalized patient complaints (4) Dyspnea Allen Bone Jun 13, 2019 21:51
--- NOTE | 2019-06-13 22:59 | NUR ---
NURSE NOTES: patient doesn't have an IV access, MD was made are.
[2019-06-14] VITALS (7 sets, daily range): BP systolic 113–137; BP diastolic 53–80
[2019-06-14] MEDS: HydrALAZINE 50mg tab ORAL SCH ×4 (00:08→18:58)
[2019-06-14] MEDS: HYDROcodone/Acetamin 10/325 tab ORAL PRN ×4 (00:08→18:59)
--- NOTE | 2019-06-14 06:47 | NUR ---
HAND-OFF: Report given to Amy NG.
--- NOTE | 2019-06-14 08:17 | NUR ---
NURSE NOTES: Patient is awake and alert,respirations unlabored,patient resting ,ate breakfast,no complaint at this time.call light within reach,bed alarm is on.
[2019-06-14] MEDS: Ascorbic Acid 500mg tab ORAL SCH ×2 (08:23→18:58)
[2019-06-14] MEDS: Lisinopril 10mg tab ORAL SCH (08:23)
--- NOTE | 2019-06-14 13:23 | Surgery Progress Note ---
Surgery Progress Note Subjective Additional Comments Patient seen and examined bedside. States he is doing well. No complaints. Fairly uncooperative with care plan. Does not want to begin using his wheelchair again. Does not want to get out of bed. Does not turn himself and awaits nurses for pretty much all care Objective Last 24 Hour Vital Signs Date Time Temp Pulse Resp B/P (MAP) Pulse Ox O2 Delivery O2 Flow Rate FiO2 06/14/19 12:41 90 113/64 (80) 06/14/19 12:41 113/64 06/14/19 12:00 98.2 52 16 114/53 (73) 06/14/19 09:00 Room Air 06/14/19 08:23 129/59 06/14/19 08:22 94 129/59 06/14/19 08:00 94 18 129/59 (82) 06/14/19 06:06 130/79 06/14/19 04:00 97.5 73 19 137/79 (98) 06/14/19 00:08 130/80 06/14/19 00:00 97.8 83 18 130/80 (97) 06/13/19 22:01 Room Air 06/13/19 20:00 98.4 74 18 121/64 (83) 06/13/19 17:45 98.2 06/13/19 17:15 141/66 06/13/19 16:00 98.2 81 18 141/66 (91) 97 I&O Intake and Output 06/13/19 06/14/19 18:59 06:59 Intake Total 740 ml Output Total 1000 ml 1200 ml Balance -260 ml -1200 ml Intake Oral 740 ml Output Urine Total 1000 ml 1200 ml Dressing: saturated Wound: other Drains: other Cardiovascular: RSR Respiratory: clear Abdomen: soft, present bowel sounds Extremities: no cyanosis Plan Problems: (1) Incontinence associated dermatitis Assessment & Plan: Pt with Morbid Obesity whom presented on admission with multiple pressure injuries. Full thickness pressure injury L buttocks. Base of wound 80% viable with 20% slough. Macerated borders . Darker skin tone with induration or fluctuance periwound. (L)3.5cm x (W)1cm. Full Thickness pressure injury R buttocks. Base of wound 90% amy ,10% necrotic area noted. Small amt sanguineous exudate noted. Borders macerated. Darker skin tone without erythema ,induration or elevation in skin temp noted. ( L)7.5cm x (W)3cm. Pt verbalized burning at sites of each wound.Dry skin with shearing noted to Sacrum. Intertriginous dermatitis noted to scrotum.erythema with patches of scaly skin with scattered satellite lesions noted to scrotum. Pt's hygiene is grossly neglected. Both heels are dry and callused . No erythema noted to heels. Tx.Plan: Apply Moisture Barrier Paste to R and L buttocks and Sacrum Daily. Cover with Optifoam drsg. daily and prn. Encourage and assist as needed with repositioning at least every 2hours or as tolerated. Apply Cavilon Skin Barrier to both heels. Off-load heels with pillow (2) Decubital ulcer (3) Encounter for generalized patient complaints (4) Dyspnea Allen Bone Jun 14, 2019 13:23
--- NOTE | 2019-06-14 17:14 | NUR ---
CASE MANAGEMENT:REVIEW 06/14/19 SI: RHABDOMYOLYSIS. UTI. DECUB ULCER T 98.2 HR 52 RR 16 B/P 114/53 SATS 97% ON RA NO LABS TODAY IS: IV VANCOMYCIN Q12HR LISINOPRIL PO QD HYDRALAZINE PO Q6HRS LOVENOX SQ Q24 NORCO PO Q4HRS PRN : MED/SURG STATUS
--- NOTE | 2019-06-14 19:00 | NUR ---
NURSE NOTES: Patient complain of pain,patient requesting pain medication,pain med given as ordered.Call light within reach.
--- NOTE | 2019-06-14 19:17 | NUR ---
HAND-OFF: Report given to Michelle NG.
--- NOTE | 2019-06-14 19:37 | NUR ---
NURSE NOTES: Received patient in bed, awake, alert, oriented x 4 , able to make his needs known, VSS, afebrile, no IV access, MD is aware. Call light is within reach, bed is in low position, locked and alarm is on. Will continue to monitor for safety and comfort.
[2019-06-14] MEDS: Enoxaparin 40mg Inj SUBQ SCH (20:28)
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
--- NOTE | 2019-06-14 22:49 | Neurology Progress Note ---
Interim History Interim History ROS Limited/Unobtainable: No Interim History 59 y/o AA obese, homeless male who was BIBA due to generalized body aches. He was noted to be unkept and covered in fecal matter in the ED. Upon evaluation, CXR was not diagnostic due to body habitus and his UA was noted to be positive for UTI. Ceftriaxone was started and UTOX was positive. ongoign back pain and leg weakness, not ambulating, has numbness in feet Review of Systems All Systems: reviewed and negative except above Objective Physical Exam Last Vital Signs Date Time Temp Pulse Resp B/P (MAP) Pulse Ox O2 Delivery O2 Flow Rate FiO2 06/14/19 21:00 Room Air 06/14/19 20:00 98.5 87 18 132/64 (86) 06/14/19 16:00 95 General: well developed Neurologic Exam Mental Status: awake, oriented x4 Speech: normal speech Motor System: normal muscle tone Objective obese distal neuropathy Impression/Recommendations Problems: (1) Encounter for generalized patient complaints (2) Dyspnea (3) Decubital ulcer (4) Incontinence associated dermatitis Status: stable, not improved Diagnostic Impression lower back pain with spasms polyneuropathy pt ot encourage ambulation Manuel Roque MD Jun 14, 2019 22:49
[2019-06-15] VITALS: BP 108/57
[2019-06-15] MEDS: HydrALAZINE 50mg tab ORAL SCH ×4 (00:28→17:08)
[2019-06-15 04:00] VITALS: BP 123/70
--- NOTE | 2019-06-15 06:56 | NUR ---
HAND-OFF: Report given to Bianca NG.
--- NOTE | 2019-06-15 07:25 | NUR ---
NURSE NOTES: received patient in bed , eating his breakfast , patient awake, alert, oriented x3 no sign of respiratory distress, denies pain .on fall aspiration precaution, bed alarm is on.both siderails up for safety, call light w/n easy reach, kept clean dry and comfortable in bed. needs met and anticipated nita salazar
[2019-06-15 08:01] VITALS: BP 116/78
[2019-06-15] MEDS: Ascorbic Acid 500mg tab ORAL SCH ×2 (08:29→17:08)
[2019-06-15] MEDS: Lisinopril 10mg tab ORAL SCH (08:30)
[2019-06-15] MEDS: HYDROcodone/Acetamin 10/325 tab ORAL PRN ×3 (08:42→20:57)
--- NOTE | 2019-06-15 10:07 | NUR ---
CASE MANAGEMENT:REVIEW 06/15/19 SI; SACRAL AND BILATERAL BUTTOCK ULCERS NEW ONSET DM. UTI 98.0 70 18 116/78 95% ON RA IS: NORVASC PO QD CHLORTHALIDONE PO QD LISINOPRIL PO QD LOVENOX SQ Q24 HYDRALAZINE PO Q6HRS : MED/SURG STATUS 4 EAST DCP: IN PROGRESS PLAN: PATIENT IS HOMELESS AND REQUIRING SNF PLACEMENT FOR CONTINUATION OF WOUND CARE PATIENT HAS BEEN REFERRED TO MULTIPLE SNF'S BUT NONE WILL ACCEPT EXPECT [facility] IS WILLING TO ACCEPT PATIENT IF THEY RECEIVE A LETTER OF AGREEMENT FROM [employer] MESSAGES [facility] ~ NO RESPONSE
--- NOTE | 2019-06-15 10:16 | NUR ---
DISCHARGE PLANNING PLAN: PATIENT IS HOMELESS AND REQUIRING SNF PLACEMENT FOR CONTINUATION OF WOUND CARE PATIENT HAS BEEN REFERRED TO MULTIPLE SNF'S BUT NONE WILL ACCEPT, EXPECT ONE. [facility] IS WILLING TO ACCEPT PATIENT IF THEY RECEIVE A LETTER OF AGREEMENT FROM [facility] MESSAGES LEFT FOR LYNN AT [facility] T: [phone]~ NO RESPONSE Addendum: 06/15/19 at 1238 by KAYLIN AGUILERA LVN LVN SECOND VMM OF THE DAY LEFT FOR CORIE LYNN AT [facility]
--- NOTE | 2019-06-15 10:21 | NUR ---
Social Service Note Follow up call placed to [facility] mental health provider [phone] regarding snf bed. Awaiting return call. Will continue to follow up.
[2019-06-15 12:06] VITALS: BP 122/65
--- NOTE | 2019-06-15 12:44 | Surgery Progress Note ---
Surgery Progress Note Subjective Symptoms: improved, tolerating diet, voiding well, passing flatus, BM Objective Last 24 Hour Vital Signs Date Time Temp Pulse Resp B/P (MAP) Pulse Ox O2 Delivery O2 Flow Rate FiO2 06/15/19 12:27 122/65 06/15/19 12:06 98.2 89 18 122/65 (84) 06/15/19 08:30 116/78 06/15/19 08:29 70 116/78 06/15/19 08:20 Room Air 06/15/19 08:01 98.0 70 18 116/78 (91) 06/15/19 05:43 135/80 06/15/19 04:00 99.0 90 20 123/70 (87) 06/15/19 00:28 131/85 06/15/19 00:00 98.0 89 14 108/57 (74) 06/14/19 21:00 Room Air 06/14/19 20:00 98.5 87 18 132/64 (86) 06/14/19 18:58 119/64 06/14/19 16:00 98.9 93 18 117/56 (76) 95 I&O Intake and Output 06/14/19 06/15/19 18:59 06:59 Intake Total 240 ml Output Total 900 ml 900 ml Balance -660 ml -900 ml Intake Oral 240 ml Output Urine Total 900 ml 900 ml Dressing: saturated Wound: other Drains: other Cardiovascular: RSR Respiratory: clear Abdomen: soft, flat, present bowel sounds Extremities: no cyanosis Plan Problems: (1) Incontinence associated dermatitis Assessment & Plan: Pt with Morbid Obesity whom presented on admission with multiple pressure injuries. Full thickness pressure injury L buttocks. Base of wound 80% viable with 20% slough. Macerated borders . Darker skin tone with induration or fluctuance periwound. (L)3.5cm x (W)1cm. Full Thickness pressure injury R buttocks. Base of wound 90% amy ,10% necrotic area noted. Small amt sanguineous exudate noted. Borders macerated. Darker skin tone without erythema ,induration or elevation in skin temp noted. ( L)7.5cm x (W)3cm. Pt verbalized burning at sites of each wound.Dry skin with shearing noted to Sacrum. Intertriginous dermatitis noted to scrotum.erythema with patches of scaly skin with scattered satellite lesions noted to scrotum. Pt's hygiene is grossly neglected. Both heels are dry and callused . No erythema noted to heels. Tx.Plan: Apply Moisture Barrier Paste to R and L buttocks and Sacrum Daily. Cover with Optifoam drsg. daily and prn. Encourage and assist as needed with repositioning at least every 2hours or as tolerated. Apply Cavilon Skin Barrier to both heels. Off-load heels with pillow (2) Decubital ulcer (3) Encounter for generalized patient complaints (4) Dyspnea Allen Bone Jun 15, 2019 12:44
--- NOTE | 2019-06-15 15:47 | NUR ---
*-* INSURANCE *-* UPDATED CLINICALS & REVIEWS HAVE BEEN FAXED TO: [facility] F:[phone] Addendum: 06/16/19 at 1300 by KAYLIN AGUILERA LVN LVN [facility] COR[facility] STRONG T: [phone] F: [phone] TRACKING #[id number]
[2019-06-15 15:58] VITALS: BP 96/48
--- NOTE | 2019-06-15 19:18 | NUR ---
HAND-OFF: Report given to BERENICE JACKSON., resting comfortably in bed, patient free from injury berenice salazar
--- NOTE | 2019-06-15 19:27 | NUR ---
NURSE NOTES: Pt is in bed, awake and alert. No acute distress noted. No SOB. Pt appears comfortable. Bed locked low in position,side rails up and call light within reach. Pt will be monitored.
[2019-06-15 20:00] VITALS: BP 140/98
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
[2019-06-15] MEDS: Enoxaparin 40mg Inj SUBQ SCH (20:58)
--- NOTE | 2019-06-15 22:10 | Neurology Progress Note ---
Interim History Interim History ROS Limited/Unobtainable: No Interim History less pain today Review of Systems All Systems: reviewed and negative except above Objective Physical Exam Last Vital Signs Date Time Temp Pulse Resp B/P (MAP) Pulse Ox O2 Delivery O2 Flow Rate FiO2 06/15/19 21:00 Room Air 06/15/19 20:00 100.1 92 18 140/98 (112) 100 General: well developed Neurologic Exam Mental Status: awake, oriented x4 Speech: normal speech Motor System: normal muscle tone Objective obese distal neuropathy Impression/Recommendations Problems: (1) Encounter for generalized patient complaints (2) Dyspnea (3) Decubital ulcer (4) Incontinence associated dermatitis Status: stable, not improved Diagnostic Impression lower back pain with spasms polyneuropathy pt ot encourage ambulation Manuel Roque MD Jun 15, 2019 22:10
[2019-06-16] VITALS: BP 137/64
[2019-06-16] MEDS: HydrALAZINE 50mg tab ORAL SCH ×4 (02:24→17:03)
[2019-06-16] MEDS: HYDROcodone/Acetamin 10/325 tab ORAL PRN ×3 (02:27→21:06)
[2019-06-16 04:00] VITALS: BP 135/78
--- NOTE | 2019-06-16 05:32 | NUR ---
NURSE NOTES: Pt is in bed, asleep. No acute distress noted.
--- NOTE | 2019-06-16 07:05 | NUR ---
HAND-OFF: Report given to Bianca Raphael RN.
--- NOTE | 2019-06-16 07:13 | NUR ---
NURSE NOTES: received patient in bed patient awake, alert, oriented x3 no sign of respiratory distress, denies pain .on fall aspiration precaution, bed alarm is on.both siderails up for safety, call light w/n easy reach, kept clean dry and comfortable in bed. needs met and anticipated nita salazar
[2019-06-16 08:00] VITALS: BP 104/48
[2019-06-16] MEDS: Ascorbic Acid 500mg tab ORAL SCH ×2 (08:12→17:03)
[2019-06-16] MEDS: Lisinopril 20mg tab ORAL SCH (08:12)
--- NOTE | 2019-06-16 09:03 | NUR ---
CASE MANAGEMENT:REVIEW 06/16/19 SI; SACRAL AND BILATERAL BUTTOCK ULCERS NEW ONSET DM. 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 ([place]) T: [phone]~ NO RESPONSE
--- NOTE | 2019-06-16 09:09 | NUR ---
DISCHARGE PLANNING [facility] IS WILLING TO ACCEPT PATIENT IF THEY RECEIVE A LETTER OF AGREEMENT FROM [facility] NOT RESPOND[facility] TO MESSAGES LEFT LEFT VMM FOR [facility] LYNN T: [phone] Addendum: 06/16/19 at 0940 by KAYLIN AGUILERA LVN LVN FAXED CLINICALS TO: [facility]LLAT: [phone] [place] ANDRE[facility]F:[phone] Addendum: 06/16/19 at 1038 by KAYLIN AGUILERA LVN [facility] [place]: [phone] Addendum: 06/16/19 at 1129 by KAYLIN AGUILERA LVN LVN REFERRED TO [facility] T:[phone] Addendum: 06/16/19 at 1140 by KAYLIN AGUILERA LVN LVN REFERRED TO [facility]:[phone]
--- NOTE | 2019-06-16 10:59 | NUR ---
PRN OCCUPATIONAL THERAPIST Co-signature Notes: Reviewed patient's file. Reviewed and approved PRN OCCUPATIONAL THERAPIST notes Addendum: 06/16/19 at 1059 by SONY BERNARDO PT,MG Amended: Links added.
[2019-06-16 11:52] VITALS: BP 138/66
--- NOTE | 2019-06-16 12:22 | Surgery Progress Note ---
Surgery Progress Note Subjective Symptoms: improved Additional Comments Patient is not comply with care plan at all times. He does not work with physical therapy. He does not want to move much out of bed. He is fairly noncompliant with care Objective Last 24 Hour Vital Signs Date Time Temp Pulse Resp B/P (MAP) Pulse Ox O2 Delivery O2 Flow Rate FiO2 06/16/19 12:20 138/66 06/16/19 11:52 98.2 90 17 138/66 (90) 94 06/16/19 08:13 88 135/78 06/16/19 08:12 135/78 06/16/19 08:05 Room Air 06/16/19 08:00 98.0 98 17 104/48 (66) 94 06/16/19 06:35 135/78 06/16/19 04:00 99.8 88 17 135/78 (97) 96 06/16/19 02:24 138/68 06/16/19 00:00 99.9 91 18 137/64 (88) 97 06/15/19 21:00 Room Air 06/15/19 20:00 100.1 92 18 140/98 (112) 100 06/15/19 17:08 96/48 06/15/19 15:58 98.0 86 18 96/48 (64) 100 06/15/19 12:27 122/65 I&O Intake and Output 06/15/19 06/16/19 19:00 07:00 Intake Total 880 ml 480 ml Output Total 1400 ml Balance 880 ml -920 ml Intake Oral 880 ml 480 ml Output Urine Total 1400 ml # Voids 4 5 # Bowel Movements 1 Dressing: saturated Wound: other Cardiovascular: RSR Respiratory: clear Abdomen: soft, flat, non-tender Extremities: no cyanosis Plan Problems: (1) Incontinence associated dermatitis Assessment & Plan: Pt with Morbid Obesity whom presented on admission with multiple pressure injuries. Full thickness pressure injury L buttocks. Base of wound 80% viable with 20% slough. Macerated borders . Darker skin tone with induration or fluctuance periwound. (L)3.5cm x (W)1cm. Full Thickness pressure injury R buttocks. Base of wound 90% amy ,10% necrotic area noted. Small amt sanguineous exudate noted. Borders macerated. Darker skin tone without erythema ,induration or elevation in skin temp noted. ( L)7.5cm x (W)3cm. Pt verbalized burning at sites of each wound.Dry skin with shearing noted to Sacrum. Intertriginous dermatitis noted to scrotum.erythema with patches of scaly skin with scattered satellite lesions noted to scrotum. Pt's hygiene is grossly neglected. Both heels are dry and callused . No erythema noted to heels. Tx.Plan: Apply Moisture Barrier Paste to R and L buttocks and Sacrum Daily. Cover with Optifoam drsg. daily and prn. Encourage and assist as needed with repositioning at least every 2hours or as tolerated. Apply Cavilon Skin Barrier to both heels. Off-load heels with pillow (2) Decubital ulcer (3) Encounter for generalized patient complaints (4) Dyspnea Allen Bone Jun 16, 2019 12:22
--- NOTE | 2019-06-16 12:50 | NUR ---
DISCHARGE PLANNING SPOKE WITH [facility] CATRACHITO STRONG T: [phone]. SHE WILL CONTACT IZA MARTINEZ AND BEGIN THE LETTER OF AGREEMENT PROCESS
--- NOTE | 2019-06-16 15:19 | NUR ---
*-* INSURANCE *-* ALL CLINICALS AND REVIEWS HAVE BEEN FAXED TO: [facility]RACH[facility] STRONG T: [phone] F: [phone] TRACKING #[id number]
[2019-06-16 16:44] VITALS: BP 136/78
--- NOTE | 2019-06-16 18:42 | General Progress Note ---
Assessment/Plan Status: stable, not improved Assessment/Plan: 59 y/o AA homeless male admitted with generalized body pain. # Uncontrolled HTN - improved - cont lisinopril 20, hydralazine 50 q6, chlorthalidone 25 mg po daily # New onset DM2 - a1c 6.8 - discussed new dx with patient - appreciate nutrition input - f/u bmp - can start metformin on dc # UTI - resolved - Lactate was negative - s/p CTX - Follow up cx and REPEAT 06/07, 2 new sets- NGTD - Encourage hydration - TTE: reviewed WNL - # positive blood cultures, likely contaminant - Negative # Rhabdomyolysis, resolved - CK level downtrending. No need to repeat anymore. - Pain control with [place] PRN. Patient has been using this for the past year. # Hypokalemia - Repleted. # Morbid obesity - Education and dietary follow up # Homelessness - SW consult for placement and resources noted and will need follow up for discharge plan. PENDING FOR DC ( per report all data was faxed to [facility] ) # Generalized body pain - PT evaluation- however not participating - He is WC bound and uses a walker to stand only Skin wound Tx.Plan: Apply Moisture Barrier Paste to R and L buttocks and Sacrum Daily. Cover with Optifoam drsg. daily and prn. Encourage and assist as needed with repositioning at least every 2hours or as tolerated. - noncomplaint Apply Cavilon Skin Barrier to both heels. Off-load heels with pillow. # Full code # Dispo - patient is homeless, SNF referral for wound care Subjective Date patient seen: Jun 16, 2019 Allergies: Coded Allergies: Pork (Unverified Allergy, Unknown, 06/03/19) TETANUS VACCINES AND TOXOID (Unverified Allergy, Unknown, 06/03/19) Subjective No acute overnight events, pt states he feels a little better today, pain still present but improved, otherwise no other complaints. Pending placement, still noncomplain with plan of care and not participating in PT Objective Last 24 Hour Vital Signs Date Time Temp Pulse Resp B/P (MAP) Pulse Ox O2 Delivery O2 Flow Rate FiO2 06/16/19 17:03 136/78 06/16/19 16:44 97.9 91 18 136/78 (97) 94 06/16/19 12:20 138/66 06/16/19 11:52 98.2 90 17 138/66 (90) 94 06/16/19 08:13 88 135/78 06/16/19 08:12 135/78 06/16/19 08:05 Room Air 06/16/19 08:00 98.0 98 17 104/48 (66) 94 06/16/19 06:35 135/78 06/16/19 04:00 99.8 88 17 135/78 (97) 96 06/16/19 02:24 138/68 06/16/19 00:00 99.9 91 18 137/64 (88) 97 06/15/19 21:00 Room Air 06/15/19 20:00 100.1 92 18 140/98 (112) 100 Intake and Output 06/15/19 06/16/19 18:59 06:59 Intake Total 880 ml 480 ml Output Total 1400 ml Balance 880 ml -920 ml Intake Oral 880 ml 480 ml Output Urine Total 1400 ml # Voids 4 5 # Bowel Movements 1 Height (Feet): 6 Height (Inches): 2.00 Weight (Pounds): 393 Objective General Appearance: no apparent distress, alert Neck: non-tender, normal alignment, supple, other - enlarged neck circumference Respiratory/Chest: lungs clear, normal breath sounds, no respiratory distress Abdomen: non tender, soft, no organomegaly Edema: no edema noted Arm (L), no edema noted Arm (R), no edema noted Leg (L), no edema noted Leg (R), no edema noted Pedal (L), no edema noted Pedal (R), no edema noted 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
--- NOTE | 2019-06-16 19:30 | NUR ---
NURSE NOTES: Patient awake in bed, not in acute respiratory distress, asking for next dose of pain med. Will medicate as ordered. Needs attended. Call light and needs in reach. Bed in lowest position and lock engaged. Will continue to monitor.
--- NOTE | 2019-06-16 19:30 | NUR ---
HAND-OFF: Report given to BERENICE Caputo, resting comfortably in bed, patient free from pain and injury, berenice salazar.
[2019-06-16 20:00] VITALS: BP 139/60
[2019-06-16] MEDS: Enoxaparin 40mg Inj SUBQ SCH (20:42)
[2019-06-17] VITALS: BP 121/71
[2019-06-17] MEDS: HydrALAZINE 50mg tab ORAL SCH ×4 (00:38→18:28)
[2019-06-17] MEDS: HYDROcodone/Acetamin 10/325 tab ORAL PRN ×2 (01:17→05:40)
[2019-06-17 04:00] VITALS: BP 132/68
--- NOTE | 2019-06-17 07:51 | NUR ---
HAND-OFF: Report given to BERENICE Reyes.
--- NOTE | 2019-06-17 07:57 | NUR ---
NURSE NOTES: Patient is awake and alert,respirations unlabored.Patient sitting up in bed and eating breakfast,patient state he is ok and no concerns at this time.Call light within reach,bed alarm is on.
[2019-06-17 08:02] VITALS: BP 149/52
[2019-06-17] MEDS: Ascorbic Acid 500mg tab ORAL SCH ×2 (08:10→18:27)
[2019-06-17] MEDS: Lisinopril 20mg tab ORAL SCH (08:10)
--- NOTE | 2019-06-17 11:23 | NUR ---
CASE MANAGEMENT:REVIEW 06/17/19 SI; SACRAL AND BILATERAL BUTTOCK ULCERS NEW ONSET DM. UTI 97.9 94 18 149/52 95% ON RA IS: NORVASC PO QD CHLORTHALIDONE PO QD LISINOPRIL PO QD LOVENOX SQ Q24 HYDRALAZINE PO Q6HRS NORCO PO Q4HRS PRN : MED/SURG STATUS 4 EAST DCP: IN PROGRESS PLAN: SPOKE WITH [employer] CATRACHITO YESTERDAY WAITING FOR LETTER OF AGREEMENT FROM [facility] TO [facility] WHICH IS THE ONLY FACILITY THAT WOULD ACCEPT THIS PATIENT
[2019-06-17 12:22] VITALS: BP 155/69
--- NOTE | 2019-06-17 12:30 | NUR ---
PT NOTE: Pt declined PT interventions due to PATEL, RN made aware.
--- NOTE | 2019-06-17 14:34 | NUR ---
*-* INSURANCE *-* UPDTED CLINICALS AND REVIEWS HAVE BEEN FAXED TO: [facility] STRONG T: [phone] F: [phone] TRACKING #[id number]
--- NOTE | 2019-06-17 15:31 | Surgery Progress Note ---
Surgery Progress Note Subjective Additional Comments no acute events pending placement Objective Last 24 Hour Vital Signs Date Time Temp Pulse Resp B/P (MAP) Pulse Ox O2 Delivery O2 Flow Rate FiO2 06/17/19 12:22 98.1 92 18 155/69 (97) 97 06/17/19 12:20 155/69 06/17/19 09:00 Room Air 06/17/19 08:10 149/52 06/17/19 08:09 94 149/52 06/17/19 08:02 97.9 94 18 149/52 (84) 95 06/17/19 05:39 123/75 06/17/19 04:00 97.2 86 18 132/68 (89) 95 06/17/19 00:38 121/71 06/17/19 00:00 98.3 76 20 121/71 (88) 96 06/16/19 21:00 Room Air 06/16/19 20:00 99.6 92 20 139/60 (86) 96 06/16/19 17:03 136/78 06/16/19 16:44 97.9 91 18 136/78 (97) 94 I&O Intake and Output 06/16/19 06/17/19 19:00 07:00 Intake Total 500 ml 500 ml Output Total 2500 ml Balance -2000 ml 500 ml Intake Oral 500 ml 500 ml Output Urine Total 2500 ml # Voids 5 3 Dressing: saturated Wound: other Cardiovascular: RSR Respiratory: clear Abdomen: soft, non-tender, present bowel sounds, non-distended Extremities: no cyanosis Plan Problems: (1) Incontinence associated dermatitis Assessment & Plan: Pt with Morbid Obesity whom presented on admission with multiple pressure injuries. Full thickness pressure injury L buttocks. Base of wound 80% viable with 20% slough. Macerated borders . Darker skin tone with induration or fluctuance periwound. (L)3.5cm x (W)1cm. Full Thickness pressure injury R buttocks. Base of wound 90% amy ,10% necrotic area noted. Small amt sanguineous exudate noted. Borders macerated. Darker skin tone without erythema ,induration or elevation in skin temp noted. ( L)7.5cm x (W)3cm. Pt verbalized burning at sites of each wound.Dry skin with shearing noted to Sacrum. Intertriginous dermatitis noted to scrotum.erythema with patches of scaly skin with scattered satellite lesions noted to scrotum. Pt's hygiene is grossly neglected. Both heels are dry and callused . No erythema noted to heels. Tx.Plan: Apply Moisture Barrier Paste to R and L buttocks and Sacrum Daily. Cover with Optifoam drsg. daily and prn. Encourage and assist as needed with repositioning at least every 2hours or as tolerated. Apply Cavilon Skin Barrier to both heels. Off-load heels with pillow (2) Decubital ulcer (3) Encounter for generalized patient complaints (4) Dyspnea Allen Bone Jun 17, 2019 15:31
[2019-06-17 16:00] VITALS: BP 108/56
--- NOTE | 2019-06-17 17:46 | General Progress Note ---
Assessment/Plan Status: stable, not improved Assessment/Plan: 59 y/o AA homeless male admitted with generalized body pain. # Uncontrolled HTN - improved - cont lisinopril 20, hydralazine 50 q6, chlorthalidone 25 mg po daily # New onset DM2 - a1c 6.8 - discussed new dx with patient - appreciate nutrition input - f/u bmp - can start metformin on dc # UTI - resolved - Lactate was negative - s/p CTX - Follow up cx and REPEAT 06/07, 2 new sets- NGTD - Encourage hydration - TTE: reviewed WNL - # positive blood cultures, likely contaminant - Negative # Rhabdomyolysis, resolved - CK level downtrending. No need to repeat anymore. - Pain control with [place] PRN. Patient has been using this for the past year. # Hypokalemia - Repleted. # Morbid obesity - Education and dietary follow up # Homelessness - SW consult for placement and resources noted and will need follow up for discharge plan. PENDING FOR DC ( per report all data was faxed to [facility] ) # Generalized body pain - PT evaluation- however not participating - He is WC bound and uses a walker to stand only Skin wound Tx.Plan: Apply Moisture Barrier Paste to R and L buttocks and Sacrum Daily. Cover with Optifoam drsg. daily and prn. Encourage and assist as needed with repositioning at least every 2hours or as tolerated. - noncomplaint Apply Cavilon Skin Barrier to both heels. Off-load heels with pillow. # Full code # Dispo - patient is homeless, SNF referral for wound care Subjective Date patient seen: Jun 17, 2019 Allergies: Coded Allergies: Pork (Unverified Allergy, Unknown, 06/03/19) TETANUS VACCINES AND TOXOID (Unverified Allergy, Unknown, 06/03/19) Subjective No acute overnight events, pain still present but improved, otherwise no other complaints. Pending placement, still noncomplaint with plan of care and not participating in PT Objective Last 24 Hour Vital Signs Date Time Temp Pulse Resp B/P (MAP) Pulse Ox O2 Delivery O2 Flow Rate FiO2 06/17/19 16:00 98.0 59 18 108/56 (73) 97 06/17/19 12:22 98.1 92 18 155/69 (97) 97 06/17/19 12:20 155/69 06/17/19 09:00 Room Air 06/17/19 08:10 149/52 06/17/19 08:09 94 149/52 06/17/19 08:02 97.9 94 18 149/52 (84) 95 06/17/19 05:39 123/75 06/17/19 04:00 97.2 86 18 132/68 (89) 95 06/17/19 00:38 121/71 06/17/19 00:00 98.3 76 20 121/71 (88) 96 06/16/19 21:00 Room Air 06/16/19 20:00 99.6 92 20 139/60 (86) 96 Intake and Output 06/16/19 06/17/19 19:00 07:00 Intake Total 500 ml 500 ml Output Total 2500 ml Balance -2000 ml 500 ml Intake Oral 500 ml 500 ml Output Urine Total 2500 ml # Voids 5 3 Height (Feet): 6 Height (Inches): 2.00 Weight (Pounds): 400 Objective General Appearance: no apparent distress, alert Neck: non-tender, normal alignment, supple, other - enlarged neck circumference Respiratory/Chest: lungs clear, normal breath sounds, no respiratory distress Abdomen: non tender, soft, no organomegaly Edema: no edema noted Arm (L), no edema noted Arm (R), no edema noted Leg (L), no edema noted Leg (R), no edema noted Pedal (L), no edema noted Pedal (R), no edema noted 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
--- NOTE | 2019-06-17 19:13 | NUR ---
HAND-OFF: Report given to
--- NOTE | 2019-06-17 19:14 | NUR ---
NURSE NOTES: Patient resting watching Tv,call light within reach .
--- NOTE | 2019-06-17 19:30 | NUR ---
NURSE NOTES: Patient awake in bed, calm at this time, not in acute respiratory distress. Instructed the use of call light. Call light and needs in reach. Needs attended. Will continue to monitor.
[2019-06-17 20:00] VITALS: BP 114/57
[2019-06-17] MEDS: HYDROcodone/Acetamin 5/325 tab ORAL PRN (20:25)
[2019-06-17] MEDS: Enoxaparin 40mg Inj SUBQ SCH (20:32)
[2019-06-18] VITALS: BP 144/89
[2019-06-18] MEDS: HydrALAZINE 50mg tab ORAL SCH ×4 (00:27→18:00)
[2019-06-18] MEDS: HYDROcodone/Acetamin 5/325 tab ORAL PRN ×4 (00:27→18:09)
[2019-06-18 04:00] VITALS: BP 131/83
--- NOTE | 2019-06-18 06:44 | NUR ---
NURSE NOTES: Bed bath given and wound care done.
--- NOTE | 2019-06-18 07:33 | NUR ---
HAND-OFF: Report given to BERENICE Laughlin.
--- NOTE | 2019-06-18 07:42 | NUR ---
NURSE NOTES: Patient is awake and alert,respirations unlabored.Patient sitting up in bed and eating breakfast.call light within reach.
[2019-06-18 08:00] VITALS: BP 103/56
[2019-06-18] MEDS: Ascorbic Acid 500mg tab ORAL SCH ×2 (08:14→18:09)
[2019-06-18] MEDS: Lisinopril 20mg tab ORAL SCH (09:00)
--- NOTE | 2019-06-18 10:59 | Surgery Progress Note ---
Surgery Progress Note Subjective Additional Comments doing okay not moving much still pending placement incontinent Objective Last 24 Hour Vital Signs Date Time Temp Pulse Resp B/P (MAP) Pulse Ox O2 Delivery O2 Flow Rate FiO2 06/18/19 09:00 103/56 06/18/19 09:00 90 103/56 06/18/19 08:00 98.3 90 18 103/56 (72) 95 06/18/19 05:24 116/83 06/18/19 04:00 99.1 94 20 131/83 (99) 97 06/18/19 00:27 144/89 06/18/19 00:00 99.5 97 20 144/89 (107) 95 06/17/19 21:00 Room Air 06/17/19 20:00 98.9 99 20 114/57 (76) 96 06/17/19 18:28 144/76 06/17/19 16:00 98.0 59 18 108/56 (73) 97 06/17/19 12:22 98.1 92 18 155/69 (97) 97 06/17/19 12:20 155/69 I&O Intake and Output 06/17/19 06/18/19 19:00 07:00 Intake Total 716 ml 1000 ml Output Total 1500 ml 1250 ml Balance -784 ml -250 ml Intake Oral 716 ml 1000 ml Output Urine Total 1500 ml 1250 ml # Voids 1 # Bowel Movements 1 Drains: none Cardiovascular: RSR Respiratory: clear Abdomen: soft, non-tender, present bowel sounds Extremities: no cyanosis Plan Problems: (1) Incontinence associated dermatitis Assessment & Plan: Pt with Morbid Obesity whom presented on admission with multiple pressure injuries. Full thickness pressure injury L buttocks. Base of wound 80% viable with 20% slough. Macerated borders . Darker skin tone with induration or fluctuance periwound. (L)3.5cm x (W)1cm. Full Thickness pressure injury R buttocks. Base of wound 90% amy ,10% necrotic area noted. Small amt sanguineous exudate noted. Borders macerated. Darker skin tone without erythema ,induration or elevation in skin temp noted. ( L)7.5cm x (W)3cm. Pt verbalized burning at sites of each wound.Dry skin with shearing noted to Sacrum. Intertriginous dermatitis noted to scrotum.erythema with patches of scaly skin with scattered satellite lesions noted to scrotum. Pt's hygiene is grossly neglected. Both heels are dry and callused . No erythema noted to heels. Tx.Plan: Apply Moisture Barrier Paste to R and L buttocks and Sacrum Daily. Cover with Optifoam drsg. daily and prn. Encourage and assist as needed with repositioning at least every 2hours or as tolerated. Apply Cavilon Skin Barrier to both heels. Off-load heels with pillow (2) Decubital ulcer (3) Encounter for generalized patient complaints (4) Dyspnea Allen Bone Jun 18, 2019 10:59
[2019-06-18 12:27] VITALS: BP 126/69
--- NOTE | 2019-06-18 13:12 | NUR ---
RD ASSESSMENT & RECOMMENDATIONS SEE CARE ACTIVITY FOR COMPLETE ASSESSMENT DAILY ESTIMATED NEEDS: Needs based on Morbid obesity, wounds 20-25 110kg adj kcals/kg 3283-8400 total kcals 1.25-1.5 adj g protein/kg 138-165 g total protein 20-25ml/kcal mL/kg 2454-2988 total fluid mLs NUTRITION DIAGNOSIS: 1) Increased pro needs r/t wound healing as evidenced by pt w/ BL buttock stage 3 ulcers upon adm -> now resolved. (UPDATED) 2) Altered nutrition related lab values r/t clinical status, hyperglycemia as evidenced by elev LDL 114, A1C 6.8 3) Obesity r/t etiology unknown, as evidenced by pt w/ BMI >50, @208% of [place] Body Weight. (CURRENT DIET: Low Fat) PO DIET RECOMMENDATIONS--->>> DIET CHANGE TO LOW FAT /CCHO MED + DOUBLE PROTEIN PORTIONS ADDITIONAL RECOMMENDATIONS: 1) As able, maintain calibrated bed scale wts 2) A1C 6.8-> rec carb control diet + hypoglycemics 3) WOUND CARE: Add GEOFF BID continue MVI and Vit C 4) Updated labs as able to assess lytes + glycemic control
--- NOTE | 2019-06-18 13:30 | NUR ---
DISCHARGE PLANNED PATIENT WILL DISCHARGE TO [facility] SKILLED T: [phone] FOR NURSE TO NURSE REPORT [facility] HAS BEEN ARRANGED FOR 1730 (PER REQUEST OF SNF)
[2019-06-18] MEDS ORDERED: APRESOLINE50 MG ORAL (13:47)
[2019-06-18] MEDS ORDERED: CHLORTHALIDONE25 MG ORAL (13:47)
[2019-06-18] MEDS ORDERED: NORVASC5 MG ORAL (13:47)
[2019-06-18] MEDS ORDERED: MULTIVITAMINS1 EAC2 ORAL (13:47)
[2019-06-18] MEDS ORDERED: PRINIVIL20 MG ORAL (13:47)
[2019-06-18] MEDS ORDERED: ASCORBIC ACID500 M4 ORAL (13:47)
[2019-06-18] MEDS ORDERED: NORCO 5-325 TA1 EACH ORAL (13:47)
--- NOTE | 2019-06-18 13:48 | Discharge Instructions ---
Discharge Instructions Discharge Instructions Follow up with: pcp Call MD/Return to Hospital if: intractable vomiting and pain, fevers Services at Discharge: physical therapy, occupational therapy Diet: diabetic calorie control, cardiac 2 GM Na, low fat Resume Normal Activity?: Yes Activity: as tolerated For Congestive Heart Failure Reminder Report to your physician any weight gain of 5 pounds or more in one week. Sharmila Moore MD Jun 18, 2019 13:48
--- NOTE | 2019-06-18 14:02 | NUR ---
*-* INSURANCE *-* UPDTED CLINICALS HAVE BEEN FAXED TO: [facility] STRONG T: [phone] F: [phone] TRACKING #[id number]
--- NOTE | 2019-06-18 15:35 | NUR ---
NURSE NOTES: Report given to Janki NG at [facility].
[2019-06-18 16:00] VITALS: BP 101/70
--- NOTE | 2019-06-18 20:00 | NUR ---
NURSE NOTES: [facility] personnel here to transfer patient to [facility] as ordered.Patient has personal belongings.ID hospital band removed,patient has no IV.
--- NOTE | 2019-06-18 21:19 | Discharge Summary ---
Discharge Summary Hospital Course Date of Admission Jun 03, 2019 at 14:12 Date of Discharge Jun 18, 2019 at 19:57 Admitting Diagnosis DYSPNEA HPI Orin Abdi is a 59 year old male who was admitted on Jun 03, 2019 at 14:12 for Bodyache Hospital Course 59 y/o AA homeless male admitted with generalized body pain. # Uncontrolled HTN - cont lisinopril 20, hydralazine 50 q6, chlorthalidone 25 mg po daily # New onset DM2 - a1c 6.8 -cont diet control # UTI - resolved - s/p abx treatment # Rhabdomyolysis, resolved - CK level downtrending. \ # Hypokalemia - Repleted. # Morbid obesity - Education and dietary follow up Skin wound Tx.Plan: Apply Moisture Barrier Paste to R and L buttocks and Sacrum Daily. Cover with Optifoam drsg. daily and prn. Encourage and assist as needed with repositioning at least every 2hours or as tolerated. - noncomplaint Apply Cavilon Skin Barrier to both heels. Off-load heels with pillow. # Full code Discharge Discharge Disposition Patient was discharged to Discharge Instructions Discharge Instructions Follow up with: pcp Call MD/Return to Hospital if: intractable vomiting and pain, fevers Services Upon Discharge: physical therapy, occupational therapy Activity: as tolerated Sharmila Moore MD Jun 18, 2019 21:19
--- NOTE | 2019-06-19 10:49 | NUR ---
*-* INSURANCE *-* DISCHARGE SUMMARY HAS BEEN FAXED TO: [facility]O STRONG T: [phone] F: [phone] TRACKING #[id number]
== END 2019-06-18 19:57 | DRG 463 ==
LOC: EDBD 12:52 → EMR 14:00 → 2E 14:12 → EDBEDREQ 18:29 → 2E 06-10 05:55 → 4E 06-10 16:00
DX: N39.0 Urinary tract infection, site not specified (principal); E66.01 Morbid (severe) obesity due to excess calories; E87.6 Hypokalemia; Z68.37 Body mass index [BMI] 37.0-37.9, adult; Z59.0 Homelessness; M62.82 Rhabdomyolysis; E11.9 Type 2 diabetes mellitus without complications; Z88.7 Allergy status to serum and vaccine; L30.8 Other specified dermatitis; L89.329 Pressure ulcer of left buttock, unspecified stage; L89.319 Pressure ulcer of right buttock, unspecified stage; G89.29 Other chronic pain; S82.892S Other fracture of left lower leg, sequela; V03.10XS Pedestrian on foot injured in collision with car, pick-up truck or van in traffic accident, sequela; R06.00 Dyspnea, unspecified; I10 Essential (primary) hypertension
CPT/HCPCS: 36415; 36600; 71045; 80048; 80053; 80061; 80202; 80307; 81003; 82550; 82553; 82803; 83036; 83605; 83690; 83880; 84484; 85025; 87040; 87081; 87086; 87181; 93005; 93306; 96365; 99285; J2405; J8499